=== PATIENT | male | born 1970 | race Caucasian/White ===

== ENCOUNTER 2024-05-17 16:22 | Emergency (ER) | payer OTHER ==
--- OUTSIDE RECORDS SUMMARY | 2024-05-17 16:25 | XMS REPORT | Continuity of Care Document ---
Author Name Unknown Address [address] [place] [address] [facility] Address 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 Name Role Phone GA SAMUEL JR Primary Care Physician UnavaKaity Dalal Attending Clinician Unavailable Scot West Attending Clinician Unavailable ROMIE COWART Attending Clinician Unavail able ROMIE COWART Attending Clinician Unavail able Romie Cowart MD Attending Clinician LEXUS MACIAS Attending Clinician Unava MYRA Ramos Attending Clinician Unavailable LAB90 Attending Clinician Unavailable Lexus Macias MD Attending Clinician [phone] Tony Lazaro MD Attending Clinician Therapy, [facility] Attending Clinician Unavailable Isaac Bernard MD Attending Clinician [phone] ISAAC BERNARD Attending Clinician Unavailable ROMIE COWART Admitting Clinician Unavail able Payers Payer Name Policy Type Policy Number Effective Date Expirati on Date Source CIGNA II [id number] 2018 00:00:00 CIGNA 2 [id number] 2021 00:00:00 CIGNA C1 [id number] 2018 00:00:00 [facility] Problems Condition Name Condition Details Condition Category Status Onset Date Resolution Date Last Treatment Date Treating Clinician Comments Source [id number] 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 [facility] [id number] Obstructiv e sleep apnea syndrome Problem Active [facility] [id number] Seasonal allergies Problem Active [facility] Obesity due to excess calories Other obesity due to excess calories Problem Active [facility] [id number] Anxiety Problem Active [facility] Gastroesop hageal reflux disease GERD (gastroeso phageal reflux disease) Problem Active [facility] Current smoker Current smoker Problem Active [facility] Tobacco user 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 complicati on Problem Active [facility] Diaphragma tic hernia Diaphragma tic hernia Problem Active [facility] Family history of stroke Family history of stroke Problem Active [facility] Mixed hyperlipid emia Mixed hyperlipid emia Problem Active [facility] No known active problems No known active problems Disease Fabienne Portillo Allergies, Adverse Reactions, Alerts Allergy Name Allergy Type Status Severity Reaction(s) Onset Date Inactive Date Treating Clinician Comments Source NO KNOWN ALLERGIE S Drug Class Active [facility] Social History Social Habit Start Date Stop Date Quantity Comments Source History of Tobacco Use Former Smoker [facility] Sex Assigned At [facility] Sexual orientation U [facility] Exposure to SARS-CoV-2 (event) Yes Fabienne mcmillan History of Social function 2023-12-18 00:00:00 2023-12-18 00:00:00 Fabienne Portillo - External Tobacco use and exposure 2023-06-29 00:00:00 2023-06-29 00:00:00 User of smokeless tobacco Fabienne [place] Argueta Sex 2021-01-05 15:27:30 2021-01-05 15:27:30 Male (finding) Fabienne Duvallhipolito Kei Kendall Smoking Status Start Date Stop Date Source Tobacco smoking consumption unknown [facility] Never smoked tobacco Fabienne Duvallhipolito Kei Argueta Former Smoker 2020-02-12 00:00:00 2020-02-12 00:00:00 [facility] Medications Ordered Medication Name Filled Medication Name Start Date Stop Date Current Medication? Ordering Clinician Indication Dosage Frequency Signature (SIG) Comments Components Source ketoconazol e 2 % - triamcinolo ne 0.1 % cream 2023-04 00:00: 00 Yes [id number] .25g Apply 0.25 g to affected area(s) in the morning and 0.25 g in the evening. [facility] methylPREDN ISolone 4 MG oral Tablet Therapy Pack 12-17 00:00: 00 Yes [id number] 1{tammy} Take 1 tammy by mouth See Admin Instructio ns Use as directed. Fabienne alexis Pseudoeph-B romphen-DM 30-2-10 MG/5ML oral Syrup 12-17 00:00: 00 Yes [id number] 10mL Q.25D Take 10 mL by mouth 4 times daily as needed. Fabienne alexis Azithromyci n 250 MG oral Tablet 12-17 00:00: 00 12-23 04:59 :00 No [id number] Take 2 tablets by mouth on day 1 then 1 tablet by mouth daily for 4 days thereafter .. Fabienne alexis Pantoprazol e Sodium 40 MG oral Tablet Delayed Response 11-04 00:00: 00 Yes 40mg QD Take 1 tablet (40 mg total) by mouth daily. Fabienne alexis Alprazolam 0.5 MG oral Tablet 06-28 13:25: 45 Yes 1{tbl} Take 1 tablet by mouth Fabienne alexis Citalopram Hydrobromid e 20 MG oral Tablet 06-28 13:25: 45 Yes 1{tbl} Take 1 tablet by mouth Fabienne alexis FLUTICASONE PROPIONATE, NASAL, 50 MCG/ACT nasal Suspension 06-28 13:25: 45 Yes every 24 hours Fabienne alexis Ondansetron HCl 4 MG oral Tablet 06-28 00:00: 00 Yes [id number] 4mg Q.[id number] 3D Take 1 tablet (4 mg total) by mouth every 8 hours as needed for nausea. Fabienne alexis Pantoprazol e Sodium 40 MG oral Tablet Delayed Response 06-27 00:00: 00 Yes 40mg Take 1 tablet (40 mg total) by mouth daily. Fabienne alexis Alprazolam 0.5 MG oral Tablet 08-26 10:00: 05 Yes 1{tbl} Take 1 tablet by mouth Fabienne Portillo Citalopram Hydrobromid e 20 MG oral Tablet 08-26 10:00: 05 Yes 1{tbl} Take 1 tablet by mouth Fabienne Portillo FLUTICASONE PROPIONATE, NASAL, 50 MCG/ACT nasal Suspension 08-26 10:00: 05 Yes every 24 hours Fabienne Portillo Ciprofloxac in HCl 500 MG oral Tablet 08-26 00:00: 00 09-03 04:59 :00 No [id number] 500mg Take 1 tablet (500 mg total) by mouth in the morning and 1 tablet (500 mg total) in the evening. Do all this for 7 days. Fabienne Portillo Ketorolac Tromethamin e (TORADOL) 60 mg/2 mL 04-28 20:15: 00 04-28 20:10 :00 No [id number] 60mg Fabienne Portillo Alprazolam 0.5 MG oral Tablet 04-28 13:32: 44 Yes 1{tbl} Take 1 tablet by mouth Fabienne Portillo Citalopram Hydrobromid e 20 MG oral Tablet 04-28 13:32: 44 Yes 1{tbl} Take 1 tablet by mouth Fabienne Portillo FLUTICASONE PROPIONATE, NASAL, 50 MCG/ACT nasal Suspension 04-28 13:32: 44 Yes every 24 hours Fabienne Portillo Cyclobenzap rine HCl 10 MG oral Tablet 04-28 00:00: 00 Yes [id number] 10mg Q.[id number] 3D Take 1 tablet (10 mg total) by mouth every 8 hours as needed for muscle spasms Fabienne Choudhury Externa vanesa Acetaminoph en-Codeine 300-30 MG oral Tablet 04-28 00:00: 00 Yes [id number] 1{tbl} Q.25D Take 1 tablet by mouth every 6 hours as needed for pain Fabienne alexis Ibuprofen 800 MG oral Tablet 04-28 00:00: 00 Yes [id number] 800mg Q.25D Take 1 tablet (800 mg total) by mouth every 6 hours as needed for pain Fabienne alexis Alprazolam 0.5 MG oral Tablet 2020-04 14:28: 54 Yes 1{tbl} Take 1 tablet by mouth Fabienne Portillo Citalopram Hydrobromid e 20 MG oral Tablet 2020-04 14:28: 54 Yes 1{tbl} Take 1 tablet by mouth Fabienne Portillo FLUTICASONE PROPIONATE, NASAL, 50 MCG/ACT nasal Suspension 2020-04 14:28: 54 Yes every 24 hours Fabienne Portillo Amoxicillin -Pot Clavulanate 875-125 MG oral Tablet 2020-04 00:00: 00 Yes [id number] 1{tbl} Take 1 tablet by mouth 2 times daily Fabienne alexis Citalopram Hydrobromid e 20 MG oral Tablet 01-06 08:07: 05 Yes 1{tbl} Take 1 tablet by mouth Fabienne Portillo FLUTICASONE PROPIONATE, NASAL, 50 MCG/ACT nasal Suspension 01-06 08:07: 05 Yes every 24 hours Fabienne Portillo Alprazolam 0.5 MG oral Tablet 01-06 08:07: 05 Yes 1{tbl} Take 1 tablet by mouth Fabienne Portillo methylPREDN ISolone 4 MG oral Tablet Therapy Pack 01-06 00:00: 00 Yes [id number] 1{tammy} Take 1 tammy by mouth See Admin Instructio ns Use as directed Fabienne alexis methylPREDN ISolone 4 MG oral Tablet Therapy Pack 01-06 00:00: 00 Yes [id number] 1{tammy} Take 1 tammy by mouth See Admin Instructio ns Use as directed Fabienne Portillo Azithromyci n 250 MG oral Tablet 01-06 00:00: 00 01-12 04:59 :00 No [id number] Take 2 tablets by mouth on day 1 then 1 tablet by mouth daily for 4 days thereafter . Fabienne Portillo iohexol (OMNIPAQUE 350 BULK-100 mL) injection 100 mL 01-03 10:30: 00 01-03 10:12 :00 No [id number] 100mL 100 mL, Intravenou s, ONCE, 1 dose, On 01/03/21 at 0530, Routine [facility] No known medications 01-03 03:41: 46 No [facility] Benzonatate 200 MG oral Capsule 01-03 00:00: 00 Yes 200mg Take 200 mg by mouth Fabienne alexis casirivimab -imdevimab 1200 mg in 60 mL NS MINI-BAG 01-01 18:30: 00 01-01 15:15 :00 No [id number] 1200mg 1,200 mg, IV Infusion, ONCE, Administer over 20 Minutes, On 01/01/21 at 1330, For 1 dose
Ad air quality instrument specialist as an IV infusion via pump or gravity through an intravenou s line containing a sterile, in-line or add-on 0.2-micron polyethers ulfone (PES) filter.&nb sp;Stable 36 hours refrigerat ed; 4 hours at room temperatur e. &nbs p;
[facility] Montelukast Sodium 10 MG Montelukast Sodium 10 MG 08-29 00:00: 00 No 1{table t} QD Montelukas t Sodium 10 MG Testosteron e Cypionate 200 MG/ML Testosteron e Cypionate 200 MG/ML 08-22 00:00: 00 No 1{ml} Testostero ne Cypionate 200 MG/ML Fish Oil 1000 MG Fish Oil 1000 MG No 1{capsu le} QD Fish Oil 1000 MG Fenofibrate 67 MG Fenofibrate 67 MG No 1{capsu le_with _a_meal } QD Fenofibrat e 67 MG Vital Signs Vital Name Observation Time Observation Value Comments S grecia Systolic blood pressure 2024-02-17 19:32:00 158 mm[Hg] [facility] Diastolic blood pressure 2024-02-17 19:32:00 104 mm[Hg] [facility] Heart rate 2024-02-17 19:32:00 77 /min [facility] Body temperature 2024-02-17 19:32:00 36.89 Comfort [facility] Respiratory rate 2024-02-17 19:32:00 16 /min [facility] Body height 2024-02-17 19:32:00 188 cm [facility] Body weight 2024-02-17 19:32:00 113.399 kg [facility] BMI 2024-02-17 19:32:00 32.10 kg/m2 [facility] Oxygen saturation in Arterial blood by Pulse oximetry 2024-02-17 19:32:00 100 /min [facility] Systolic blood pressure 2023-12-18 20:49:00 120 mm[Hg] Fabienne Ivano ld - External Diastolic blood pressure 2023-12-18 20:49:00 76 mm[Hg] Fabienne Ivano ld - External Heart rate 2023-12-18 20:49:00 83 /min Rsoette Ivanold - External Body temperature 2023-12-18 20:49:00 37.06 Comfort Fabienne Duvallybold - External Respiratory rate 2023-12-18 20:49:00 18 /min Fabienne Duvallybold - External Body height 2023-12-18 20:49:00 188 cm Juanita Ivanold - External Body weight 2023-12-18 20:49:00 116.574 kg Juanita ey Seybold - External BMI 2023-12-18 20:49:00 33.00 kg/m2 Juanita ey Seybold - External Systolic blood pressure 2023-06-29 18:24:00 142 mm[Hg] Fabienne Seybo ld - External Diastolic blood pressure 2023-06-29 18:24:00 89 mm[Hg] Fabienne Seybo ld - External Heart rate 2023-06-29 18:24:00 80 /min Kelse y Seybold - External Body temperature 2023-06-29 18:24:00 36.78 Comfort Fabienne Seybold - External Respiratory rate 2023-06-29 18:24:00 20 /min Fabienne Seybold - External Body weight 2023-06-29 18:24:00 113.399 kg Juanita ey Seybold - External BMI 2023-06-29 18:24:00 31.25 kg/m2 Juanita ey Seybold - External Oxygen saturation in Arterial blood by Pulse oximetry 2023-06-29 18:24:00 100 /min Fabienne Seybo ld - External Systolic blood pressure 2021-08-26 15:00:00 132 mm[Hg] Fabienne Seybo ld Diastolic blood pressure 2021-08-26 15:00:00 90 mm[Hg] Fabienne Seybo ld Heart rate 2021-08-26 15:00:00 103 /min Kelse y Seybold Body temperature 2021-08-26 15:00:00 36.61 Comfort Fabienne Seybold Respiratory rate 2021-08-26 15:00:00 14 /min Fabienne Seybold Body height 2021-08-26 15:00:00 190.5 cm Juanita ey Seybold Body weight 2021-08-26 15:00:00 108.41 kg Juanita ey Seybold BMI 2021-08-26 15:00:00 29.87 kg/m2 Juanita ey Seybold Systolic blood pressure 2021-04-28 19:33:00 137 mm[Hg] Fabienne Seybo ld Diastolic blood pressure 2021-04-28 19:33:00 86 mm[Hg] Fabienne Seybo ld Heart rate 2021-04-28 19:33:00 95 /min Kelse y Seybold Body temperature 2021-04-28 19:33:00 36.11 Comfort Fabienne Seybold Respiratory rate 2021-04-28 19:33:00 13 /min Fabienne Seybold Body height 2021-04-28 19:33:00 190.5 cm Juanita ey Seybold Body weight 2021-04-28 19:33:00 108.41 kg Juanita ey Seybold BMI 2021-04-28 19:33:00 29.87 kg/m2 Juanita ey Seybold Systolic blood pressure 2021-03-01 20:31:00 104 mm[Hg] Fabienne Seybo ld Diastolic blood pressure 2021-03-01 20:31:00 68 mm[Hg] Fabienne Seybo ld Heart rate 2021-03-01 20:31:00 80 /min Kelse y Seybold Body temperature 2021-03-01 20:31:00 36.72 Comfort Fabienne Seybold Respiratory rate 2021-03-01 20:31:00 14 /min Fabienne Seybold Body height 2021-03-01 20:31:00 190.5 cm Juanita ey Seybold Body weight 2021-03-01 20:31:00 106.595 kg Juanita ey Seybold BMI 2021-03-01 20:31:00 29.37 kg/m2 Juanita ey Seybold Oxygen saturation in Arterial blood by Pulse oximetry 2021-03-01 20:31:00 98 /min Fabienne Seybo ld Systolic blood pressure 2021-01-06 13:00:00 102 mm[Hg] Fabienne Seybo ld Diastolic blood pressure 2021-01-06 13:00:00 64 mm[Hg] Fabienne Seybo ld Heart rate 2021-01-06 13:00:00 93 /min Kelse y Seybold Body temperature 2021-01-06 13:00:00 36.94 Comfort Fabienne Seybold Respiratory rate 2021-01-06 13:00:00 14 /min Fabienne Seybold Body height 2021-01-06 13:00:00 190.5 cm Juanita ey Seybold Body weight 2021-01-06 13:00:00 103.42 kg Juanita ey Seybold BMI 2021-01-06 13:00:00 28.50 kg/m2 Juanita Portillo Systolic blood pressure 2021-01-03 11:00:00 116 mm[Hg] [facility] Diastolic blood pressure 2021-01-03 11:00:00 72 mm[Hg] [facility] Heart rate 2021-01-03 11:00:00 87 /[facility] Respiratory rate 2021-01-03 11:00:00 22 /min [facility] Oxygen saturation in Arterial blood by Pulse oximetry 2021-01-03 11:00:00 95 /min [facility] Body temperature 2021-01-03 08:40:00 36.78 Comfort [facility] Body height 2021-01-03 08:40:00 190.5 cm [facility] Body weight 2021-01-03 08:40:00 99.791 kg [facility] BMI 2021-01-03 08:40:00 27.50 kg/m2 [facility] Systolic blood pressure 2021-01-01 15:43:00 119 mm[Hg] [facility] Diastolic blood pressure 2021-01-01 15:43:00 78 mm[Hg] [facility] Heart rate 2021-01-01 15:43:00 97 /min [facility] Body temperature 2021-01-01 15:43:00 36.89 Comfort [facility] Respiratory rate 2021-01-01 15:43:00 18 /min [facility] Oxygen saturation in Arterial blood by Pulse oximetry 2021-01-01 15:43:00 97 /min [facility] Body height 2021-01-01 14:40:00 190.5 cm [facility] Body weight 2021-01-01 14:40:00 99.791 kg [facility] BMI 2021-01-01 14:40:00 27.50 kg/m2 [facility] height 2020-01-30 15:20:00 74 [in_i] [facility] weight 2020-01-30 15:20:00 245.0 [lb_av] [facility] temperature 2020-01-30 15:20:00 98.2 [degF] Com mon [facility] bmi 2020-01-30 15:20:00 31.45 kg/m2 [facility] oximetry 2020-01-30 15:20:00 97 % [facility] respiratory rate 2020-01-30 15:20:00 18 /min [facility] blood pressure systolic 2020-01-30 15:20:00 138 mm[Hg] [facility] blood pressure diastolic 2020-01-30 15:20:00 88 mm[Hg] [facility] height 2020-01-19 14:00:00 74 [in_i] [facility] weight 2020-01-19 14:00:00 243.8 [lb_av] Co mmon [facility] temperature 2020-01-19 14:00:00 98.8 [degF] Com [facility] bmi 2020-01-19 14:00:00 31.3 kg/m2 [facility] oximetry 2020-01-19 14:00:00 97 % [facility] respiratory rate 2020-01-19 14:00:00 19 /min [facility] blood pressure systolic 2020-01-19 14:00:00 135 mm[Hg] [facility] blood pressure diastolic 2020-01-19 14:00:00 88 mm[Hg] [facility] Procedures Procedure Date / Time Performed Performing Clinicia n Source URINALYSIS 2024-02-17 21:21:00 Romie Cowart [facility] TROPONIN I 2024-02-17 21:20:00 Romie Cowart [facility] COMP. METABOLIC PANEL ([id number]) 2024-02-17 21:20:00 Romie Cowart [facility] CBC WITH DIFF 2024-02-17 21:20:00 Romie Cowart [facility] N-TERMINAL PRO-BNP 2024-02-17 21:20:00 Romie Cowart [facility] MAGNESIUM 2024-02-17 21:20:00 Romie Cowart [facility] XR CHEST 1 VW 2024-02-17 20:28:54 Romie Cowart [facility] URINALYSIS NONAUTO W/O SCOPE 2021-08-26 15:11:[address] CHEST PULMONARY ANGIOGRAM 2021-01-03 10:17:59 Tony Lazaro [facility] XR CHEST 1 VW 2021-01-03 09:10:29 Tony Lazaro [facility] TROPONIN I 2021-01-03 08:55:00 Tony Lazaro [facility] COMP. METABOLIC PANEL ([id number]) 2021-01-03 08:55:00 Tony Lazaro [facility] CBC WITH DIFF 2021-01-03 08:55:00 Tony Lazaro [facility] N-TERMINAL PRO-BNP 2021-01-03 08:55:00 Tony Lazaro [facility] Encounters Start Date/Time End Date/Time Encounter Type Admission Type Attending [facility] Care Department Encounter ID Source 2021-05-04 12:09:00 Outpatient Kaity Correa [facility] [id number] [facility] 2021-05-04 12:03:25 Outpatient Kaity Correa [facility] [id number] [facility] 2021-05-04 12:03:02 Outpatient Kaity Correa [facility] [id number] [facility] 2021-05-04 12:02:22 Outpatient Kaity Correa [facility] [id number] [facility] 2021-05-04 11:59:55 Outpatient Kaity Correa [facility] [id number] [facility] 2021-05-04 11:58:53 Outpatient Kaity Correa [facility] [id number] [facility] 2021-05-04 11:54:25 Outpatient Kaity Correa [facility] [id number] [facility] 2021-05-04 11:54:12 Outpatient [facility] [id number] [facility] 2021-05-04 11:53:26 Outpatient Scot West [facility] [id number] [facility] 2021-02-08 01:28:[address] [facility] [id number] [facility] 2024-02-17 13:34:00 2024-02-17 17:49:00 Emergency X ROMIE COWART [facility] ERT [id number] [facility] 2024-02-17 13:34:00 2024-02-17 17:49:00 Emergency Romie Cowart [facility] [id number] [facility] 2024-02-08 00:00:00 2024-02-08 00:00:00 Outpatient LEXUS MACIAS [id number] [facility] 2023-12-18 15:30:00 2023-12-18 15:30:00 Outpatient MYRA SOTO [id number] [facility] 2023-11-05 00:00:00 2023-11-05 00:00:00 Outpatient LEXUS MACIAS [id number] [facility] 2023-09-07 00:00:00 2023-09-07 00:00:00 Outpatient LEXUS MACIAS [id number] [facility] 2023-06-29 14:15:00 2023-06-29 14:15:00 Outpatient LAB90 FABIENNE NEWBERRY [id number] Fabienne Portillo 2023-06-29 13:30:00 2023-06-29 13:30:00 Outpatient LEXUS MACIAS [id number] [facility] 2021-08-29 00:00:00 2021-08-29 00:00:00 Outpatient LEXUS MACIAS [id number] [facility] 2021-08-26 10:30:00 2021-08-26 10:30:00 Outpatient LAB90 FABIENNE NEWBERRY [id number] [facility] 2021-08-26 10:00:00 2021-08-26 10:15:00 Office Visit Lexus Macias [place] [id number] [facility] 2021-04-28 13:45:00 2021-04-28 14:00:00 Office Visit Lexus Macias [place] [id number] [facility] 2021-03-01 14:30:00 2021-03-01 15:00:00 Office Visit Lexus Macias [place] [id number] [facility] 2021-01-06 07:54:14 2021-01-06 08:24:14 Office Visit Lexus Macias [place] [id number] [facility] 2021-01-03 03:45:00 2021-01-03 06:38:00 Emergency Tony Lazaro [facility] [id number] [facility] 2021-01-01 11:33:07 2021-01-01 12:33:07 Nurse Visit Therapy, Clc Isaac Colvin [facility] Office Building 1..840.114 [id number] [facility] 2021-01-01 09:30:00 2021-01-01 09:30:[address] [facility] [id number] [facility] 2021-01-01 09:30:00 2021-01-01 09:30:[address] [facility] [id number] [facility] 2020-02-13 00:00:00 2020-02-13 00:00:00 OFFICE VISIT EST PT LEVEL 3 STLMLC STLMLC [id number] [facility] 2020-02-03 00:00:00 2020-02-03 00:00:00 (TEL) STLMLC STLMLC [id number] [facility] 2020-01-30 00:00:00 2020-01-30 00:00:00 (TEL) STLMLC STLMLC [id number] [facility] 2020-01-30 00:00:00 2020-01-30 00:00:00 OFFICE VISIT ESTAB PT LEVEL 4 STLMLC STLMLC [id number] [facility] 2020-01-19 00:00:00 2020-01-19 00:00:00 OFFICE VISIT EST PT LEVEL 3 STLMLC STLMLC [id number] [facility] Results Test Description Test Time Test Comments Results Result Co mments Source [id number] 21:57:05* Test Item Value Reference Range Interpretation Comme nts NT-proBNP (test code = 83033-9) <=125 Lab Interpretation (test cod e = 24382-3) [facility] [id number] 21:50:31EXAM: XR CHEST 1 02/17/2024 1:57 PM HISTORY: 54 years old Male with malaise TECHNIQUE: Portable AP view of the chest. COMPARISON: Chest radiograph 01/03/2021 FINDINGS: Lungs and pleura: The lungs are clear. No focal consolidation,pneumothorax, or pleural effusion is seen. Cardiomediastinal: The cardiomediastinal silhouette is normal accountingfor technique. Musculoskeletal: No acute osseous abnormality. [facility]. Metabolic Panel ([id number])2024-02-17 21:46:24* Test Item Value Reference Range Interpretation Comme nts NA (test code = 8573593294) 137 mmol/L 135-145 K (test code = 2457537785) 4.1 mmol/L 3.5-5.0 CL (test code = 2914000014) 103 mmol/L 98-108 CO2 TOTAL (test code = 4858212426) 25 mmol/L 23-31 AGAP (test code = 7394681598) 9 2-16 BUN (test code = 9082944621) 14 mg/dL 7-23 GLUCOSE (test code = 6456270651) 107 mg/dL 70-110 CREATININE (test code = 2160-0) 0.86 mg/dL 0.60-1.25 TOTAL BILI (test code = 1101672384) 0.5 mg/dL 0.1-1.1 CALCIUM (test code = 8692777707) 9.1 mg/dL 8.6-10.6 T PROTEIN (test code = 8053626779) 7.4 g/dL 6.3-8.2 ALBUMIN (test code = 2600778566) 4.8 g/dL 3.5-5.0 ALK PHOS (test code = 6726310569) 69 U/L 34-122 ALTv (test code = 1742-6) 48 U/L 5-50 AST(SGOT) (test code = 5451573365) 47 U/L 13-40 H eGFR (test code = 40808-3) 102.9 mL/min/1.73m2 CKD-EPI eGFR (2020). Assuming creatinine has been stable day-to-day for at least three months, the eGFR indicates Category G1 (>= 90 mL/min/1.73 m2) Lab Interpretation (test code = 27446-7) Abnormal [facility] [facility] 21:46:24* Test Item Value Reference Range Interpretation Comme nts MAGNESIUM (test code = 3111861096) 2.1 mg/dL 1.7-2.4 Lab Interpretation (test cod e = 12079-2) [facility] [id number] 21:33:44* Test Item Value Reference Range Interpretation Comme nts WBC (test code = 6690-2) 8.38 4.20-10.70 RBC (test code = 789-8) 4.50 4.26-5.52 HGB (test code = 718-7) 14.8 g/dL 12.2-16.4 HCT (test code = 4544-3) 43.1 % 38.4-49.3 MCV (test code = 787-2) 95.8 fL 81.7-95.6 H MCH (test code = 785-6) 32.9 pg 26.1-32.7 H MCHC (test code = 786-4) 34.3 g/dL 31.2-35.0 RDW-SD (test code = 91474-9) 41.9 fL 38.5-51.6 RDW-CV (test code = 788-0) 12.1 % 12.1-15.4 PLT (test code = 777-3) 246 150-328 MPV (test code = 00517-6) 9.6 fL 9.8-13.0 L NRBC/100 WBC (test code = 1259868912) 0.0 0.0-10.0 NRBC x10^3 (test code = 9924948237) See_Comment [Automated messa ge] The system which generated this result transmitted reference range: 10*3/?L. The reference range was not used to interpret this result as normal/abnormal. GRAN MAT (NEUT) % (test code = 770-8) 70.0 % IMM GRAN % (test code = 0494526647) 0.50 % LYMPH % (test code = 736-9) 18.9 % MONO % (test code = 5905-5) 10.1 % EOS % (test code = 713-8) 0.0 % BASO % (test code = 706-2) 0.5 % GRAN MAT x10^3(ANC) (test code = 2731448398) 5.87 10*3/uL 1.99-6.95 IMM GRAN x10^3 (test code = 2627665459) 0.04 10*3/uL 0.00-0.06 LYMPH x10^3 (test code = 731-0) 1.58 10*3/uL 1.09-3.23 MONO x10^3 (test code = 742-7) 0.85 10*3/uL 0.36-1.02 EOS x10^3 (test code = 711-2) 0.06-0.53 L BASO x10^3 (test code = 704-7) 0.04 10*3/uL 0.01-0.09 Lab Interpretation (test code = 69143-6) [facility]/O [id number] 15:12:00* Test Item Value Reference Range Interpretation Comme nts UD KETONES (test code = 475740) 5 mg/dL 5-160 UD GLUCOSE (test code = 256272) neg 100-2000 UD PROTEIN (test code = 575855) neg Trace - 2000 mg/dL UD LEUKOCYTES (test code = 395950) neg Trace - Large @ 2 min. UD NITRITE (test code = 261097) neg Neg. - Pos. @ 60 sec. UD UROBILINOGEN (test code = 513737) 0.2 mg/dL 0.2-8 UD PH (test code = 485661) See_Comment [Automated [employer]] The system which generated this result transmitted reference range: 5.0 - 8.5 @ 60 sec.. The reference range was not used to interpret this result as normal/abnormal. UD BLOOD (test code = 622089) trace Neg. - Large @ 60 sec. UD SPECIFIC GRAVITY (test code = 270717) See_Comment [Automated message] The system which generated this result transmitted reference range: 1.000 - 1.030 @ 45 sec.. The reference range was not used to interpret this result as normal/abnormal. UD BILIRUBIN (test code = 838062) neg Neg. - Large @ 45 sec. Lab Interpretation (test code = 78522-8) Abnormal Fabienne Farris [id number] 09:35:42* Test Item Value Reference Range Interpretation Comments TROPONIN I (test code = 9151082853) 0.002 ng/mL See_Comment [Automated message] The system which generated this result transmitted reference range: <=0.034. The reference range was not used to interpret this result as normal/abnormal. ROC (test code = ROC) Reference (Normal) Range (defined by the 99th percentile reference limit): <= 0.034 ng/mL Note: Cardiac troponin begins to rise 3-4 hours after the onset of ischemia. Repeat in 4-6 hours if the sample was drawn within 3-4 hours of the onset of the symptom and found normal. Diagnosis of myocardial injury is made with acute changes in cTn concentrations with at least one serial sample above the 99th percentile upper reference limit (URL), taken together with the patient's clinical presentation. Biotin has been reported to cause a negative bias, interpret results relative to patient's use of biotin. Lab Interpretation (test code = 25766-0) Normal [facility] [id number] 09:32:39* Test Item Value Reference Range Interpretation Comme nts NT-proBNP (test code = 4820193323) 55 pg/mL See_Comment [Automated message] The system which generated this result transmitted reference range: <=125. The reference range was not used to interpret this result as normal/abnormal. ROC (test code = ROC) Biotin has been reported to cause a negative bias, interpret results relative to patient's use of biotin. Lab Interpretation (test code = 26888-0) [facility] (89036)2021-01-03 09:18:24* Test Item Value Reference Range Interpretation Comme nts NA (test code = 9406741218) 135 mmol/L 135-145 K (test code = 3762360798) 3.7 mmol/L 3.5-5.0 CL (test code = 8130222524) 101 mmol/L 98-108 CO2 TOTAL (test code = 3856104211) 29 mmol/L 23-31 AGAP (test code = 4194830691) 2-16 BUN (test code = 7166023997) 10 mg/dL 7-23 GLUCOSE (test code = 3430264610) 116 mg/dL 70-110 H CREATININE (test code = 8673031080) 0.66 mg/dL 0.60-1.25 TOTAL BILI (test code = 0581822549) 0.5 mg/dL 0.1-1.1 CALCIUM (test code = 3765532730) 8.4 mg/dL 8.6-10.6 L T PROTEIN (test code = 9429242333) 6.8 g/dL 6.3-8.2 ALBUMIN (test code = 6092400649) 3.8 g/dL 3.5-5.0 ALK PHOS (test code = 3452421882) 72 U/L 34-122 ALTv (test code = 1742-6) 76 U/L 5-50 H AST(SGOT) (test code = 4475682419) 72 U/L 13-40 H eGFR (test code = 3742431005) mL/min/1.73m2 ROC (test code = ROC) Association of Glomerular Filtration Rate (GFR) and Staging of Kidney Disease* + --+ --+ ------+| GFR (mL/min/1.73 m2) ?| With Kidney Damage ?| ?Without Kidney Damage+ --------+ --------+ +| ?>90 ?| ?Stage one ?| ? Normal ?+ ---+ ---+ -------+| ?60-89 ?| ?Stage two ?| ? Decreased GFR ? + --+ --+ ------+| ?30-59 ?| ?Stage three ?| ? Stage three ? + --+ --+ ------+| ?15-29 ?| ?Stage four ? | ? Stage four ?+ ---+ ---+ -------+| ?<15 (or dialysis) ? ?| ?Stage five ? | ? Stage five ?+ ---+ ---+ -------+ *Each stage assumes the associated GFR level has been in effect for at least three months. ?Stages 1 to 5, with or without kidney disease, indicate chronic kidney disease. Notes: Determination of stages one and two (with eGFR >59mL/min/1.73 m2) requires estimation of kidney damage for at least three months as defined by structural or functional abnormalities of the kidney, manifested by either:Pathological abnormalities or Markers of kidney damage (including abnormalities in the composition of the blood or urine or abnormalities in imaging tests). Lab Interpretation (test code = 47175-1) Abnormal [facility] WITH [id number] 09:03:39* Test Item Value Reference Range Interpretation Comme nts WBC (test code = 6690-2) See_Comment [Automated [employer] ge] The system which generated this result transmitted reference range: 4.20 - 10.70 10*3/?L. The reference range was not used to interpret this result as normal/abnormal. RBC (test code = 789-8) See_Comment [Automated [employer] ge] The system which generated this result transmitted reference range: 4.26 - 5.52 10*6/?L. The reference range was not used to interpret this result as normal/abnormal. HGB (test code = 718-7) 14.6 g/dL 12.2-16.4 HCT (test code = 4544-3) 42.1 % 38.4-49.3 MCV (test code = 787-2) 94.4 fL 81.7-95.6 MCH (test code = 785-6) 32.7 pg 26.1-32.7 MCHC (test code = 786-4) 34.7 g/dL 31.2-35.0 RDW-SD (test code = 75321-3) 41.5 fL 38.5-51.6 RDW-CV (test code = 788-0) 11.9 % 12.1-15.4 L PLT (test code = 777-3) See_Comment [Automated [employer] ge] The system which generated this result transmitted reference range: 150 - 328 10*3/?L. The reference range was not used to interpret this result as normal/abnormal. MPV (test code = 11632-2) 9.7 fL 9.8-13.0 L NRBC/100 WBC (test code = 8480724791) See_Comment [Automated [employer] ssage] The system which generated this result transmitted reference range: 0.0 - 10.0 /100 WBCs. The reference range was not used to interpret this result as normal/abnormal. NRBC x10^3 (test code = 0565068212) <0.01 See_Comment [Automated messa ge] The system which generated this result transmitted reference range: 10*3/?L. The reference range was not used to interpret this result as normal/abnormal. GRAN MAT (NEUT) % (test code = 770-8) 75.6 % IMM GRAN % (test code = 3931157785) 0.30 % LYMPH % (test code = 736-9) 16.8 % MONO % (test code = 5905-5) 6.9 % EOS % (test code = 713-8) 0.2 % BASO % (test code = 706-2) 0.2 % GRAN MAT x10^3(ANC) (test code = 7538240663) 4.60 10*3/uL 1.99-6.95 IMM GRAN x10^3 (test code = 8581890615) <0.03 0.00-0.06 LYMPH x10^3 (test code = 731-0) 1.02 10*3/uL 1.09-3.23 L MONO x10^3 (test code = 742-7) 0.42 10*3/uL 0.36-1.02 EOS x10^3 (test code = 711-2) <0.03 0.06-0.53 L BASO x10^3 (test code = 704-7) <0.03 0.01-0.09 Lab Interpretation (test code = 65997-1) Abnormal [facility]"
[2024-05-17 17:14] LABS: Specific Gravity < 1.005 (1.005-1.030); Urine Bilirubin NEGATIVE (Negative); Urine Blood Negative (Negative); Urine Clarity Clear (Clear); Urine Color Colorless (Yellow); Urine Glucose NEGATIVE (Negative); Urine Ketones NEGATIVE (Negative); Urine Microscopic Reflex YN NO UMIC; Urine Nitrite NEGATIVE (Negative); Urine Protein NEGATIVE (Negative); Urine Urobilinogen Normal (Normal); Urine pH 5.5 (5.0-7.0)
[2024-05-17] MEDS ORDERED: NA CHLORIDE 0.9% 500 ML ONE (17:38)
[2024-05-17] MEDS ORDERED: CEFTRIAXONE 2000 MG/VIAL ONE (19:53)
[2024-05-17] MEDS ORDERED: NA CHLORIDE 0.9% 100 ML ONE (19:53)
[2024-05-17] MEDS ORDERED: NA CHLORIDE 0.9% 1,000 ML ONE (19:53)
[2024-05-17] MEDS ORDERED: METRONIDAZOLE 500mg IVPB 500 MG/100 ML BAG IV ONE (19:54)
[2024-05-17] MEDS ORDERED: CIPROFLOXACIN 400mg IV 400 MG/200 ML BAG IV ONE (19:54)
[2024-05-17 19:57] LABS: Absolute Lymphocytes (CBC) 1.9 K/uL (0.7-4.9); Absolute Monocytes 0.5 K/uL (0.1-1.3); Absolute Neutrophil 4.9 K/uL (1.8-8.0); Basophils % 0.4 % (0-1.3); Eosinophils % 0.2 % (0-4.4); Hematocrit 44.1 % (39.6-49.0); Hemoglobin 15.9 g/dL (13.6-17.9); Lymphocytes % 25.9 % (15.3-44.8); MCH 33.4 pg (27.0-35.0); MCV 92.8 fL (80-100); MPV 7.7 fL (7.6-11.3); Monocytes % 6.9 % (3.3-12.3); Neutrophils % 66.6 % (41.7-73.7); Platelets 256 thou/uL (152-406); RBC Red Blood Cell Count 4.76 M/uL (4.33-5.43); Red Cell Distribution Width 12.6 % (12.1-15.2)
[2024-05-17 20:43] LABS: Albumin 4.1 g/dL (3.4-5.0); Albumin/Globulin Ratio 1.1 (1.1-1.8); Bilirubin Total 0.6 mg/dL (0.2-1.0); Globulin 3.7 g/dL (2.3-3.5); Protein, Total 7.8 g/dL (6.4-8.2)
--- NOTE | 2024-05-17 21:20 | RAD REPORT ---
EXAMINATION: CT ABDOMEN AND PELVIS WITH CONTRAST CLINICAL INDICATION: Male, 54 years old.ABD PAIN TECHNIQUE: CT abdomen and pelvis was performed, after the administration of IV contrast, [facility]. Axial, sagittal and coronal reconstructions were obtained. One or more of the following dose reduction techniques were used: Automated exposure control, adjustment of the mA and/o r kV according to patient size, and/or iterative reconstruction. Unless otherwise specified, incidental findings do not require dedicated imaging follow-up. [id number]. COMPARISON: No prior exam. FINDINGS: LOWER CHEST: No acute process identified.No significant pericardial effusion. Mild circumferential th ickening of the distal esophagus which could reflect esophagitis. UPPER GI: No significant abnormality. LIVER: Hepatic steatosis. Benign appearing and/or stable lesions are identified. No suspicious mass. GALLBLADDER/BILE DUCTS: No biliary ductal dilatation.? PANCREAS: No mass, ductal dilation, or gumaro-pancreatic fluid. SPLEEN: Unremarkable. ADRENALS: No adrenal masses. KIDNEYS AND URETERS: No hydronephrosis.Low density and/or too small to characterize renal lesions whi ch are statistically benign. ABDOMINAL AORTA AND OTHER VESSELS: Mild atherosclerotic changes. PERITONEUM: No abnormal free fluid. No free air. LYMPH NODES: No pathologic lymphadenopathy. ABDOMINAL WALL: Small fat-containing inguinal hernias. SMALL BOWEL/COLON: Small bowel has normal course and caliber. No colonic wall thickening or pericolon ic inflammatory changes.Normal appendix. URINARY BLADDER: Mild nonspecific circumferential bladder wall thickening. REPRODUCTIVE ORGANS: No pathologic process. MUSCULOSKELETAL: No acute or suspicious osseous abnormality. ADDITIONAL FINDINGS: None. IMPRESSION: No acute or significant abnormalities seen in the abdomen or pelvis.
--- NOTE | 2024-05-17 21:23 | EDPHYS ---
Physician Documentation [facility] Name: Cirilo Mallory Age: 54 yrs Sex: Male : 1970 Arrival Date: 05/17/2024 Time: 16:22 Bed 19 Private MD: ED Physician Gallito Bush HPI: 05/17 17:26 This 54 yrs old Male presents to ER via Ambulatory with complaints of ec2 Abdominal Pain, Abdominal Swelling. 17:26 Patient arrives today for evaluation of worsening abdominal distention. Reports he has ec2 not had medical bowel movement in the past 10 days. Patient reports abdominal distention and bloating. Previous abdominal surgery included hiatal hernia. No urinary complaints. No cough and cold symptoms. Historical: - Allergies: 16:39 No Known Allergies; hb - Home Meds: 16:39 Protonix Oral [Active]; Dicyclomine Oral [Active]; Pepcid Oral [Active]; hb - PMHx: 16:39 GERD; hb - PSHx: 16:39 Hiatal Hernia; Left Knee; Left Hip; hb - Immunization history:: Adult Immunizations up to date. - Infectious Disease History:: Denies. - Social history:: Smoking status: Reported history of juuling and/or vaping. ROS: 17:26 Constitutional: as per hpi ec2 Exam: 17:26 Constitutional: GEN: NAD Head: atraumatic Eyes: EOMI Ears: External ears are ec2 normal. CV: regular rate LUNGS: no respiratory distress ABD: Slight amount of abdominal distention, general abdominal TTP, not guarding or rigid. SKIN: no evidence of rashes MSK: no evidence of trauma Vital Signs: 16:38 BP 151 / 101; Pulse 68; Resp 16; Temp 98.5(O); Pulse Ox 98% on R/A; Weight 108.86 kg; hb Height 6 ft. 3 in. ; Pain 10/10; 18:02 BP 154 / 88; Pulse 80; Resp 20; Temp 98.2; Pulse Ox 100% on R/A; kj2 19:18 BP 161 / 94; Pulse 59; Resp 18; Pulse Ox 100% on R/A; kj2 21:28 BP 148 / 84; Pulse 60; Resp 18; Temp 98.2; Pulse Ox 100% on R/A; kj2 16:38 Body Mass Index 30.00 (108.86 kg, 190.5 cm) hb 16:38 Pain Scale: Adult hb MDM: 16:25 Medical Screening Exam initiated ec2 17:26 Data reviewed: vital signs, nurses notes. ED course: Patient arrives today for ec2 evaluation of abdominal distention. Examination is revealing for slightly moderate distention along with general TTP. Will obtain lab work and CT imaging. Differential includes constipation, obstruction, ileus. 18:43 ED course: Will sign pt out to oncoming doc w/ pending CT imaging. ec2 18:44 Transition of care: After a detail discussion of the patient's case, care is ec2 transferred to Beau Mann MD. 05/17 16:37 Order name: CBC with Diff; Complete Time: 20:11 ec2 05/17 16:37 Order name: CMP; Complete Time: 20:58 ec2 05/17 16:37 Order name: Lipase; Complete Time: 20:58 ec2 05/17 16:37 Order name: Urinalysis w/ reflexes; Complete Time: 18:46 ec2 05/17 17:25 Order name: CT Abd/Pelvis - IV Contrast Only; Complete Time: 21:21 ec2 05/17 16:37 Order name: IV Saline Lock; Complete Time: 17:43 ec2 05/17 16:37 Order name: Labs collected and sent; Complete Time: 17:43 ec2 05/17 19:30 Order name: Misc. Order: labs to be recollected; Complete Time: 20:07 sp Administered Medications: 17:39 Drug: NS 0.9% IV 500 ml 500 ml IV at 1 bolus once; to be given as a bolus over 30 kj2 minutes Volume: 500 ml; Route: IV; Rate: 1 bolus; Site: left antecubital; 20:07 Follow up: IV Status: Completed infusion; IV Intake: 500ml kj2 19:45 Drug: Rocephin - Rocephin (cefTRIAXone) IVPB 2 grams IVPB once over 30 mins; (mix in kj2 100 mL NS) Route: IVPB; Infused Over: 30 mins; Site: left antecubital; 20:14 Follow up: IV Status: Completed infusion; IV Intake: 100ml kj2 19:45 Drug: NS 0.9% IV 1000 ml IV at 1000 ml once; to be given as a bolus over 60 minutes kj2 Route: IV; Rate: 1000 ml; Site: left antecubital; 21:29 Follow up: IV Status: Completed infusion; IV Intake: 1000ml kj2 20:14 Drug: metroNIDAZOLE IVPB 500 mg 100 ml IVPB at 200 ml/hr once over 30 mins Volume: 100 kj2 ml; Route: IVPB; Rate: 200 ml/hr; Infused Over: 30 mins; Site: left antecubital; 20:47 Follow up: IV Status: Completed infusion; IV Intake: 100ml kj2 20:48 Drug: Ciprofloxacin IVPB 400 mg 200 ml IVPB once over 60 mins Volume: 200 ml; Route: kj2 IVPB; Infused Over: 60 mins; Site: left antecubital; Disposition Summary: 05/17/24 21:22 Discharge Ordered Notes: Location: Home sarkis Problem: new sarkis Symptoms: have improved sarkis Condition: Stable sarkis Diagnosis - Abdominal tenderness sarkis - Diverticulosis of large intestine without perforation or abscess without bleeding sarkis Followup: sarkis - With: Private Physician - When: 2 - 3 days - Reason: Recheck today's complaints, Continuance of care, Re-evaluation by your physician Followup: sarkis - With: Dhaval Quezada MD - When: 2 - 3 days - Reason: Recheck today's complaints, Re-evaluation by your physician Discharge Instructions: - Discharge Summary Sheet sarkis - Abdominal Pain, Adult sarkis - Diverticulitis sarkis - Diverticulosis sarkis - Diverticulitis, Eehi-sy-Hfuj sarkis - Abdominal Pain, Adult, Bumy-up-Xxan [facility] Forms: - Medication Reconciliation Form [facility] - Antibiotic Education [facility] - Prescription Opioid Use [facility] - Patient Portal Instructions [facility] - Leadership Thank You Letter [facility] Prescriptions: - Colace 100 mg Oral capsule - take 1 tablet ORAL route every 12 hours; 20 tablet; Refills: 0, Product [facility] Selection Permitted - Flagyl 500 mg Oral tablet - take 1 tablet ORAL route every 8 hours for 7 days; 21 tablet; Refills: 0, [facility] Product Selection Permitted - Zofran 4 mg Oral Tablet - take 1 tablet ORAL route every 12 hours As needed; 20 tablet; Refills: 0, [facility] Product Selection Permitted - Cipro 500 mg Oral tablet - take 1 tablet ORAL route every 12 hours for 7 days; 14 tablet; Refills: 0, [facility] Product Selection Permitted Signatures: Dispatcher [employer] EDMS EleazarGallito MD MD cha Pinkerton, Shawna sp Baxter, Heather, RN RN hb Damián Gonzalez MD MD ec2 Génesis Gallardo RN RN kj2
--- NOTE | 2024-05-17 21:23 | ER ---
Nurse's Notes [facility] Name: Cirilo Mallory Age: 54 yrs Sex: Male : 1970 Arrival Date: 05/17/2024 Time: 16:22 Bed 19 Private MD: Diagnosis: Abdominal tenderness;Diverticulosis of large intestine without perforation or abscess without bleeding Presentation: 05/17 16:38 Chief complaint: Abdominal pain and distention 9 days, worse over last few days. hb Coronavirus screen: At this time, the client does not indicate any symptoms associated with coronavirus-19. Ebola Screen: No symptoms or risks identified at this time. Initial Sepsis Screen: Does the patient meet any 2 criteria? No. Patient's initial sepsis screen is negative. Does the patient have a suspected source of infection? No. Patient's initial sepsis screen is negative. Risk Assessment: Do you want to hurt yourself or someone else? Patient reports no desire to harm self or others. Onset of symptoms was May 09, 2024. 16:38 Method Of Arrival: Ambulatory hb 16:38 Acuity: SYLVIA 3 hb Triage Assessment: 17:00 General: Behavior is calm, cooperative. kj2 Historical: - Allergies: 16:39 No Known Allergies; hb - Home Meds: 16:39 Protonix Oral [Active]; Dicyclomine Oral [Active]; Pepcid Oral [Active]; hb - PMHx: 16:39 GERD; hb - PSHx: 16:39 Hiatal Hernia; Left Knee; Left Hip; hb - Immunization history:: Adult Immunizations up to date. - Infectious Disease History:: Denies. - Social history:: Smoking status: Reported history of juuling and/or vaping. Screenin:00 [facility] ED Fall Risk Assessment (Adult) History of falling in the last 3 months, kj2 including since admission No falls in past 3 months (0 pts) Confusion or Disorientation No (0 pts) Intoxicated or Sedated No (0 pts) Impaired Gait No (0 pts) Mobility Assist Device Used No (0 pt) Altered Elimination No (0 pt) Score/Fall Risk Level 0 - 2 = Low Risk Maintained a safe environment, Hourly rounding (assess needs \T\ fall precautionary measures) done. Abuse screen: Denies threats or abuse. Denies injuries from another. Nutritional screening: No deficits noted. Tuberculosis screening: No symptoms or risk factors identified. Assessment: 16:45 General: Appears in no apparent distress. Pain: Complains of pain in ABDOMEN Pain kj2 currently is 4 out of 10 on a pain scale. Neuro: Level of Consciousness is awake, alert, obeys commands, Oriented to person, place, time, situation. Cardiovascular: Patient's skin is warm and dry. Respiratory: Airway is patent Respiratory effort is even, unlabored. GI: Bowel sounds present X 4 quads. Abd is non tender. : No signs and/or symptoms were reported regarding the genitourinary system. 17:45 Reassessment: Patient appears in no apparent distress at this time. Patient and/or kj2 family updated on plan of care and expected duration. Pain level reassessed. Patient is alert, oriented x 3, equal unlabored respirations, skin warm/dry/pink. 18:45 Reassessment: Patient appears in no apparent distress at this time. Patient and/or kj2 family updated on plan of care and expected duration. Pain level reassessed. Patient is alert, oriented x 3, equal unlabored respirations, skin warm/dry/pink. 19:45 Reassessment: Patient appears in no apparent distress at this time. Patient and/or kj2 family updated on plan of care and expected duration. Pain level reassessed. Patient is alert, oriented x 3, equal unlabored respirations, skin warm/dry/pink. 20:45 Reassessment: Patient appears in no apparent distress at this time. Patient and/or kj2 family updated on plan of care and expected duration. Pain level reassessed. Patient is alert, oriented x 3, equal unlabored respirations, skin warm/dry/pink. 21:27 Reassessment: Patient appears in no apparent distress at this time. Patient and/or kj2 family updated on plan of care and expected duration. Pain level reassessed. Patient is alert, oriented x 3, equal unlabored respirations, skin warm/dry/pink. 21:49 Reassessment: Patient appears in no apparent distress at this time. Patient and/or kj2 family updated on plan of care and expected duration. Pain level reassessed. Patient is alert, oriented x 3, equal unlabored respirations, skin warm/dry/pink. Vital Signs: 16:38 BP 151 / 101; Pulse 68; Resp 16; Temp 98.5(O); Pulse Ox 98% on R/A; Weight 108.86 kg; hb Height 6 ft. 3 in. ; Pain 10/10; 18:02 BP 154 / 88; Pulse 80; Resp 20; Temp 98.2; Pulse Ox 100% on R/A; kj2 19:18 BP 161 / 94; Pulse 59; Resp 18; Pulse Ox 100% on R/A; kj2 21:28 BP 148 / 84; Pulse 60; Resp 18; Temp 98.2; Pulse Ox 100% on R/A; kj2 16:38 Body Mass Index 30.00 (108.86 kg, 190.5 cm) hb 16:38 Pain Scale: Adult hb ED Course: 16:24 Patient arrived in ED. mr 16:37 Damián Gonzalez MD is Attending Physician. ec2 16:39 Triage completed. hb 16:40 Arm band placed on. hb 16:45 Génesis Gallardo, ARMEN is Primary Nurse. kj2 17:00 Bed in low position. Call light in reach. Adult w/ patient. Provided Education on: CALL kj2 LIGHT. 17:00 No provider procedures requiring assistance completed. Inserted saline lock: 20 gauge kj2 in left antecubital area, using aseptic technique. Blood collected. Flushed with 10 mL NS. 18:08 IV discontinued, intact, bleeding controlled, No redness/swelling at site. Pressure kj2 dressing applied. 19:01 Radiology exam delayed due to lab results not completed at this time. (BUN/Creatinine). [facility] 19:23 Attending Physician role handed off by Damián Gonzalez MD [facility] 19:23 Gallito Bush MD is Attending Physician. [facility] 21:01 CT Abd/Pelvis - IV Contrast Only In Process Unspecified. EDRI 21:21 Dhaval Quezada MD is Referral Physician. sarkis Administered Medications: 17:39 Drug: NS 0.9% IV 500 ml 500 ml IV at 1 bolus once; to be given as a bolus over 30 kj2 minutes Volume: 500 ml; Route: IV; Rate: 1 bolus; Site: left antecubital; 20:07 Follow up: IV Status: Completed infusion; IV Intake: 500ml kj2 19:45 Drug: Rocephin - Rocephin (cefTRIAXone) IVPB 2 grams IVPB once over 30 mins; (mix in kj2 100 mL NS) Route: IVPB; Infused Over: 30 mins; Site: left antecubital; 20:14 Follow up: IV Status: Completed infusion; IV Intake: 100ml kj2 19:45 Drug: NS 0.9% IV 1000 ml IV at 1000 ml once; to be given as a bolus over 60 minutes kj2 Route: IV; Rate: 1000 ml; Site: left antecubital; 21:29 Follow up: IV Status: Completed infusion; IV Intake: 1000ml kj2 20:14 Drug: metroNIDAZOLE IVPB 500 mg 100 ml IVPB at 200 ml/hr once over 30 mins Volume: 100 kj2 ml; Route: IVPB; Rate: 200 ml/hr; Infused Over: 30 mins; Site: left antecubital; 20:47 Follow up: IV Status: Completed infusion; IV Intake: 100ml kj2 20:48 Drug: Ciprofloxacin IVPB 400 mg 200 ml IVPB once over 60 mins Volume: 200 ml; Route: kj2 IVPB; Infused Over: 60 mins; Site: left antecubital; Medication: 17:00 VIS not applicable for this client. kj2 Intake: 20:07 IV: 500ml; Total: 500ml. kj2 20:14 IV: 100ml; Total: 600ml. kj2 20:47 IV: 100ml; Total: 700ml. kj2 21:29 IV: 1000ml; Total: 1700ml. kj2 Outcome: 21:22 Discharge ordered by . sarkis 21:43 Discharged to home ambulatory, with family, kj2 21:43 Condition: stable 21:43 Discharge instructions given to patient, family, Instructed on discharge instructions, follow up and referral plans. medication usage, 21:50 Patient left the ED. kj2 Signatures: Dispatcher [employer] EDRI Gallito Bush MD MD cha Rivera, Mary, Reg Reg mr Rossy Aguilar, RN RN aDmián Isaac MD MD ec2 McGilbery, Sarah [facility] Génesis Gallardo, ARMEN RN kj2 Corrections: (The following items were deleted from the chart) 19:01 18:07 Condition: stable kj2 ll1 19:01 18:07 Discharged to home ambulatory, with family, kj2 ll1 19:01 18:07 Discharge instructions given to patient, family, Instructed on discharge ll1 instructions, follow up and referral plans. Demonstrated understanding of instructions, follow-up care, kj2
[2024-05-17 22:11] VITALS: TEMP 98.2; O2SAT 100
[2024-05-17 22:14] VITALS: BP 148/84
== END 2024-05-17 21:50 | disposition home or self-care (01) ==
LOC: ER 16:22
DX: K57.30 Diverticulosis of large intestine without perforation or abscess without bleeding (principal); K21.9 Gastro-esophageal reflux disease without esophagitis
CPT/HCPCS: 96365; 96367; 96361; 85025; 36415; 81003; 83690; 80053; 74177; 96375; 99284; Q9967; J0696; J0744; J7040; J7030

== ENCOUNTER 2024-06-26 10:11 | Emergency (ER) | payer OTHER ==
--- OUTSIDE RECORDS SUMMARY | 2024-06-26 10:16 | XMS REPORT | Continuity of Care Document ---
Author Name Unknown Address [address] [facility] [address] [place] [address] [facility] [place] Address [address] [facility] [address] [place] [address] Care Team Providers Care Civil Preparedness Coordinator Name Role Phone Lexus Macias MD Primary Care Physician Kaity Correa Attending Clinician Unavailable Scot West Attending Clinician Unavailable LEXUS MACIAS Attending Clinician Unava ilable ROMIE COWART Attending Clinician Unavail able ROMIE COWART Attending Clinician Unavail able Romie Cowart MD Attending Clinician [phone] MYRA SOTO Attending Clinician Unavailable LAB90 Attending Clinician Unavailable Lexus Macias MD Attending Clinician [phone] Tony Lazaro MD Attending Clinician [phone] Therapy, [facility] Cov[facility] Infusion Attending Clinician Unavailable Isaac Bernard MD Attending Clinician [phone] ISAAC BERNARD Attending Clinician Unavailable ROMIE COWART Admitting Clinician Unavail able Payers Payer Name Policy Type Policy Number Effective Date Expirati on Date Source CIGNA 2 [id number] 2021 00:00:00 CIGNA II [id number] 2018 00:00:00 CIGNA C1 [id number] 2018 00:00:00 [facility] Problems Condition Name Condition Details Condition Category Status Onset Date Resolution Date Last Treatment Date Treating Clinician Comments Source Mixed hyperlipid emia Mixed hyperlipid emia Problem Active [facility] No known active problems No known active problems Disease Fabienne Portillo [id number] 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 [facility] [id number] Obstructiv e sleep apnea syndrome Problem Active [facility] [id number] Seasonal allergies Problem Active [facility] Obesity due to excess calories Other obesity due to excess calories Problem Active [facility] [id number] Anxiety Problem Active [facility] Gastroesop hageal reflux disease GERD (gastroeso phageal reflux disease) Problem Active [facility] Current smoker Current smoker Problem Active [facility] Tobacco user 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 complicati on Problem Active [facility] Diaphragma tic hernia Diaphragma tic hernia Problem Active [facility] Family history of stroke Family history of stroke Problem Active [facility] Allergies, Adverse Reactions, Alerts Allergy Name Allergy Type Status Severity Reaction(s) Onset Date Inactive Date Treating Clinician Comments Source NO KNOWN ALLERGIE S Drug Class Active [facility] Social History Social Habit Start Date Stop Date Quantity Comments Source History of Tobacco Use Former Smoker [facility] Sex Assigned At [facility] Exposure to SARS-CoV-2 (event) Yes Fabienne mcmillan Sexual orientation U [facility] History of Social function 2023-12-18 00:00:00 2023-12-18 00:00:00 Fabienne Portillo - External Tobacco use and exposure 2023-06-29 00:00:00 2023-06-29 00:00:00 User of smokeless tobacco Fabienne [place] Argueta Sex 2021-01-05 15:27:30 2021-01-05 15:27:30 Male (finding) Fabienne Argueta Smoking Status Start Date Stop Date Source Tobacco smoking consumption unknown [facility] Never smoked tobacco Fabienne [place] Argueta Former Smoker 2020-02-12 00:00:00 2020-02-12 00:00:00 [facility] Medications Ordered Medication Name Filled Medication Name Start Date Stop Date Current Medication? Ordering Clinician Indication Dosage Frequency Signature (SIG) Comments Components Source ketoconazol e 2 % - triamcinolo ne 0.1 % cream 2023-04 00:00: 00 Yes [id number] .25g Apply 0.25 g to affected area(s) in the morning and 0.25 g in the evening. [facility] methylPREDN ISolone 4 MG oral Tablet Therapy Pack 12-17 00:00: 00 Yes [id number] 1{tammy} Take 1 tammy by mouth See Admin Instructio ns Use as directed. Fabienne alexis Pseudoeph-B romphen-DM 30-2-10 MG/5ML oral Syrup 12-17 00:00: 00 Yes [id number] 10mL Q.25D Take 10 mL by mouth 4 times daily as needed. Fabienne alexis Azithromyci n 250 MG oral Tablet 12-17 00:00: 00 12-23 04:59 :00 No [id number] Take 2 tablets by mouth on day [...] MG oral Tablet 06-28 00:00: 00 Yes [id number] 4mg Q.34966916 [id number] 3D Take 1 tablet (4 mg total) [...] 08-26 00:00: 00 09-03 04:59 :00 No [id number] 500mg Take 1 tablet (500 mg total) by mouth in the morning and 1 tablet (500 mg total) in the evening. Do all this for 7 days. Fabienne Portillo Ketorolac Tromethamin e (TORADOL) 60 mg/2 mL 04-28 20:15: 00 04-28 20:10 :00 No [id number] 60mg Fabienne Portillo Alprazolam 0.5 MG oral [...] MG oral Tablet 04-28 00:00: 00 Yes [id number] 10mg Q.05336960 [id number] 3D Take 1 tablet (10 mg total) by mouth every 8 hours as needed for muscle spasms Fabienne Choudhury Externa vanesa Acetaminoph en-Codeine 300-30 MG oral Tablet 04-28 00:00: 00 Yes [id number] 1{tbl} Q.25D Take 1 tablet by mouth every 6 hours as needed for pain Fabienne alexis Ibuprofen 800 MG oral Tablet 04-28 00:00: 00 Yes [id number] 800mg Q.25D Take 1 tablet (800 mg total) by mouth every 6 hours as needed for pain Fabienne alexis Alprazolam 0.5 MG oral Tablet 2020-04 14:28: 54 Yes 1{tbl} Take 1 tablet by mouth Fbaienne Portillo Citalopram Hydrobromid e 20 MG oral Tablet 2020-04 14:28: 54 Yes 1{tbl} Take 1 tablet by mouth Fabienne Portillo FLUTICASONE PROPIONATE, NASAL, 50 MCG/ACT nasal Suspension 2020-04 14:28: 54 Yes every 24 hours Fabienne Portillo Amoxicillin -Pot Clavulanate 875-125 MG oral Tablet 2020-04 00:00: 00 Yes [id number] 1{tbl} Take 1 tablet by mouth 2 [...] Tablet Therapy Pack 01-06 00:00: 00 Yes [id number] 1{tammy} Take 1 tammy by mouth See Admin Instructio ns Use as directed Fabienne alexis methylPREDN ISolone 4 MG oral Tablet Therapy Pack 01-06 00:00: 00 Yes [id number] 1{tammy} Take 1 tammy by mouth See Admin Instructio ns Use as directed Fabienne Portillo Azithromyci n 250 MG oral Tablet 01-06 00:00: 00 01-12 04:59 :00 No [id number] Take 2 tablets by mouth on day 1 then 1 tablet by mouth daily for 4 days thereafter . Fabienne Portillo iohexol (OMNIPAQUE 350 BULK-100 mL) injection 100 mL 01-03 10:30: 00 01-03 10:12 :00 No [id number] 100mL 100 mL, Intravenou s, ONCE, 1 dose, On 01/03/21 at 0530, Routine [facility] No known medications 01-03 03:41: 46 No [facility] Benzonatate 200 MG oral Capsule 01-03 00:00: 00 Yes 200mg Take 200 mg by mouth Fabienne alexis casirivimab -imdevimab 1200 mg in 60 mL NS MINI-BAG 01-01 18:30: 00 01-01 15:15 :00 No [id number] 1200mg 1,200 mg, IV Infusion, ONCE, Administer over 20 Minutes, On 01/01/21 at 1330, For 1 dose
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 &nbs p;
[facility] Montelukast Sodium 10 MG Montelukast Sodium 10 [...] Name Observation Time Observation Value Comments S ource Systolic blood pressure 2024-02-17 19:32:00 158 mm[Hg] [facility] Diastolic blood pressure 2024-02-17 19:32:00 104 mm[Hg] [facility] Heart rate 2024-02-17 19:32:00 77 /min [facility] Body temperature 2024-02-17 19:32:00 36.89 Comfort [facility] Respiratory rate 2024-02-17 19:32:00 16 /min [facility] Body height 2024-02-17 19:32:00 188 cm [facility] Body weight 2024-02-17 19:32:00 113.399 kg [facility] BMI 2024-02-17 19:32:00 32.10 kg/m2 [facility] Oxygen saturation in Arterial blood by Pulse oximetry 2024-02-17 19:32:00 100 /min [facility] Systolic blood pressure 2023-12-18 20:49:00 120 mm[Hg] Fabienne Tang ld - External Diastolic blood pressure 2023-12-18 20:49:00 76 mm[Hg] Fabienne Ivano ld - External Heart rate 2023-12-18 20:49:00 83 /min Rosette Portillo - External Body temperature 2023-12-18 20:49:00 37.06 Comfort Fabienne Duvallybold - External Respiratory rate 2023-12-18 20:49:00 18 /min Fabienne Duvallybold - External Body height 2023-12-18 20:49:00 188 cm Juanitajennifer Ivanold - External Body weight 2023-12-18 20:49:00 [...] ld Heart rate 2021-08-26 15:00:00 103 /min Jlse y Seybold Body temperature 2021-08-26 15:00:00 36.61 [...] ey Seybold BMI 2021-01-06 13:00:00 28.50 kg/m2 Juanitajennifer Portillo Systolic blood pressure 2021-01-03 11:00:00 116 mm[Hg] [facility] Diastolic blood pressure 2021-01-03 11:00:00 72 mm[Hg] [facility] Heart rate 2021-01-03 11:00:00 87 /min [facility] Respiratory rate 2021-01-03 11:00:00 22 /min [facility] Oxygen saturation in Arterial blood by Pulse oximetry 2021-01-03 11:00:00 95 /min [facility] Body temperature 2021-01-03 08:40:00 36.78 Comfort [facility] Body height 2021-01-03 08:40:00 190.5 cm [facility] Body weight 2021-01-03 08:40:00 99.791 kg [facility] BMI 2021-01-03 08:40:00 27.50 kg/m2 [facility] Systolic blood pressure 2021-01-01 15:43:00 119 mm[Hg] [facility] Diastolic blood pressure 2021-01-01 15:43:00 78 mm[Hg] [facility] Heart rate 2021-01-01 15:43:00 97 /min [facility] Body temperature 2021-01-01 15:43:00 36.89 Comfort [facility] Respiratory rate 2021-01-01 15:43:00 18 /min [facility] Oxygen saturation in Arterial blood by Pulse oximetry 2021-01-01 15:43:00 97 /min [facility] Body height 2021-01-01 14:40:00 190.5 cm [facility] Body weight 2021-01-01 14:40:00 99.791 kg [facility] BMI 2021-01-01 14:40:00 27.50 kg/m2 [facility] height 2020-01-30 15:20:00 74 [in_i] [facility] weight 2020-01-30 15:20:00 245.0 [lb_av] Co mmon [facility] temperature 2020-01-30 15:20:00 98.2 [degF] Com mon [facility] bmi 2020-01-30 15:20:00 31.45 kg/m2 Comm on [facility] oximetry 2020-01-30 15:20:00 97 % Commo n [facility] respiratory rate 2020-01-30 15:20:00 18 /min Common [facility] blood pressure systolic 2020-01-30 15:20:00 138 mm[Hg] [facility] blood pressure diastolic 2020-01-30 15:20:00 88 mm[Hg] [facility] height 2020-01-19 14:00:00 74 [in_i] Commo n [facility] weight 2020-01-19 14:00:00 243.8 [lb_av] Co on [facility] temperature 2020-01-19 14:00:00 98.8 [degF] Com [facility] bmi 2020-01-19 14:00:00 31.3 kg/m2 Commo n [facility] oximetry 2020-01-19 14:00:00 97 % Commo n [facility] respiratory rate 2020-01-19 14:00:00 19 /min [facility] blood pressure systolic 2020-01-19 14:00:00 135 mm[Hg] [facility] blood pressure diastolic 2020-01-19 14:00:00 88 mm[Hg] [facility] Procedures Procedure Date / Time Performed Performing Clinicia n Source URINALYSIS 2024-02-17 21:21:00 Romie Cowart [facility] TROPONIN I 2024-02-17 21:20:00 Romie Cowart [facility] COMP. METABOLIC PANEL ([id number]) 2024-02-17 21:20:00 Romie Cowart [facility] CBC WITH DIFF 2024-02-17 21:20:00 Romie Cowart [facility] N-TERMINAL PRO-BNP 2024-02-17 21:20:00 Romie Cowart [facility] MAGNESIUM 2024-02-17 21:20:00 Romie Cowart [facility] XR CHEST 1 VW 2024-02-17 20:28:54 Romie Cowart [facility] URINALYSIS NONAUTO W/O SCOPE 2021-08-26 15:11:00 Lexus Macias [facility] CHEST PULMONARY ANGIOGRAM 2021-01-03 10:17:59 Tony Lazaro [facility] XR CHEST 1 VW 2021-01-03 09:10:29 Tony Lazaro [facility] TROPONIN I 2021-01-03 08:55:00 Tony Lazaro [facility] COMP. METABOLIC PANEL ([id number]) 2021-01-03 08:55:00 Tony Lazaro [facility] CBC WITH DIFF 2021-01-03 08:55:00 Tony Lazaro [facility] N-TERMINAL PRO-BNP 2021-01-03 08:55:00 Tony Lazaro [facility] Encounters Start Date/Time End Date/Time Encounter Type Admission Type Attending [facility] Care Facility Care Department Encounter ID Source 2021-05-04 12:09:00 Outpatient Kaity Correa [facility] [id number] [facility] 2021-05-04 12:03:25 Outpatient Kaity Correa [facility] [id number] [facility] 2021-05-04 12:03:02 Outpatient Kaity Correa [facility] [id number] [facility] 2021-05-04 12:02:22 Outpatient Kaity Correa [facility] [id number] [facility] 2021-05-04 11:59:55 Outpatient Madeline, Kaity STLMLC STLMLC [id number] [facility] 2021-05-04 11:58:53 Outpatient MadelineKaity henry STLMLC STLC [id number] [facility] 2021-05-04 11:54:25 Outpatient Kaity Correa STLMLC STLMLC [id number] [facility] 2021-05-04 11:54:12 Outpatient Kaity Correa STJULISSALC STLC [id number] [facility] 2021-05-04 11:53:26 Outpatient Scot West ST[facility] [id number] [facility] 2021-02-08 01:28:54 Emergency [facility] [id number] [facility] 2024-06-25 00:00:00 2024-06-25 00:00:00 Outpatient LEXUS MACIAS [id number] [facility] 2024-02-17 13:34:00 2024-02-17 17:49:00 Emergency X ROMIE COWART [facility] ERT [id number] [facility] 2024-02-17 13:34:00 2024-02-17 17:49:00 Emergency Romie Cowart [facility] [id number] [facility] 2024-02-08 00:00:00 2024-02-08 00:00:00 Outpatient LEXUS MACIAS [id number] Fabienne [facility] 2023-12-18 15:30:00 2023-12-18 15:30:00 Outpatient MYRA SOTO [id number] [facility] 2023-11-05 00:00:00 2023-11-05 00:00:00 Outpatient LEXUS MACIAS [id number] Fabienne [facility] 2023-09-07 00:00:00 2023-09-07 00:00:00 Outpatient LEXUS MACIAS [id number] [facility] 2023-06-29 14:15:00 2023-06-29 14:15:00 Outpatient LAB90 FABIENNE NEWBERRY [id number] Fabienne [facility] 2023-06-29 13:30:00 2023-06-29 13:30:00 Outpatient LEXUS MACIAS [id number] [facility] 2021-08-29 00:00:00 2021-08-29 00:00:00 Outpatient LEXUS MACIAS [id number] [facility] 2021-08-26 10:30:00 2021-08-26 10:30:00 Outpatient LAB90 FABIENNE NEWBERRY [id number] Fabienne [facility] 2021-08-26 10:00:00 2021-08-26 10:15:00 Office Visit Lexus Macias [place] [id number] [id number] Fab[facility] 2021-04-28 13:45:00 2021-04-28 14:00:00 Office Visit Lexus Macias [place] [id number] [id number] [id number] Fabienne [facility] 2021-03-01 14:30:00 2021-03-01 15:00:00 Office Visit Lexus Macias [place] [id number] [id number] [id number] [id number] Fabienne [facility] 2021-01-06 07:54:14 2021-01-06 08:24:14 Office Visit Lexus Macias [place] [id number] [id number] [id number] [id number] Fabienne Portillo 2021-01-03 03:45:00 2021-01-03 06:38:00 Emergency Tony Lazaro [facility] [id number] [id number] [id number] [id number] [facility] 2021-01-01 11:33:07 2021-01-01 12:33:07 Nurse Visit Therapy, Clc Isaac Colvin Formerly named [facility] Office Building [id number] [id number] [id number] [facility] 2021-01-01 09:30:00 2021-01-01 09:30:00 Outpatient ISAAC HOWELL [facility] [id number] [facility] 2021-01-01 09:30:00 2021-01-01 09:30:00 Outpatient ISAAC HOWELL [facility] [id number] [facility] 2020-02-13 00:00:00 2020-02-13 00:00:00 OFFICE VISIT EST PT LEVEL 3 STLMLC STLMLC [id number] [facility] 2020-02-03 00:00:00 2020-02-03 00:00:00 (TEL) STLMLC STLMLC [id number] [facility] 2020-01-30 00:00:00 2020-01-30 00:00:00 (TEL) STLMLC STLMLC [id number] [facility] 2020-01-30 00:00:00 2020-01-30 00:00:00 OFFICE VISIT ESTAB PT LEVEL 4 STLMLC STLMLC [id number] [facility] 2020-01-19 00:00:00 2020-01-19 00:00:00 OFFICE VISIT EST PT LEVEL 3 STLMLC STLMLC [id number] [facility] Results Test Description Test Time Test Comments Results Result Co mments Source [facility] A[facility]-[id number] 21:57:05* Test Item Value Reference Range Interpretation Comme nts NT-proBNP (test code = 08030-9) <=125 Lab Interpretation (test cod e = 86549-3) [facility] [id number] 21:50:31EXAM: XR CHEST 1 02/17/2024 1:57 PM HISTORY: 54 years old Male with malaise TECHNIQUE: Portable AP view of the chest. COMPARISON: Chest radiograph 01/03/2021 FINDINGS: Lungs and pleura: The lungs are clear. No focal consolidation,pneumothorax, or pleural effusion is seen. Cardiomediastinal: The cardiomediastinal silhouette is normal accountingfor technique. Musculoskeletal: No acute osseous abnormality. [facility]. Metabolic Panel ([id number])2024-02-17 21:46:24* Test Item Value Reference Range Interpretation Comme nts NA (test code = 1125210810) 137 mmol/L 135-145 K (test code = 1132195572) 4.1 mmol/L 3.5-5.0 CL (test code = 0986213038) 103 mmol/L 98-108 CO2 TOTAL (test code = 2674315210) 25 mmol/L 23-31 AGAP (test code = 4705720836) 9 2-16 BUN (test code = 7246612167) 14 mg/dL 7-23 GLUCOSE (test code = 0274357130) 107 mg/dL 70-110 CREATININE (test code = 2160-0) 0.86 mg/dL 0.60-1.25 TOTAL BILI (test code = 4654577413) 0.5 mg/dL 0.1-1.1 CALCIUM (test code = 4385339841) 9.1 mg/dL 8.6-10.6 T PROTEIN (test code = 1634592007) 7.4 g/dL 6.3-8.2 ALBUMIN (test code = 8226136728) 4.8 g/dL 3.5-5.0 ALK PHOS (test code = 7306917416) 69 U/L 34-122 ALTv (test code = 1742-6) 48 U/L 5-50 AST(SGOT) (test code = 2880633384) 47 U/L 13-40 H eGFR (test code = 61395-4) 102.9 mL/min/1.73m2 CKD-EPI eGFR (2020). Assuming creatinine has been stable day-to-day for at least three months, the eGFR indicates Category G1 (>= 90 mL/min/1.73 m2) Lab Interpretation (test code = 18265-6) Abnormal [facility] 21:46:24* Test Item Value Reference Range Interpretation Comme nts MAGNESIUM (test code = 0397900785) 2.1 mg/dL 1.7-2.4 Lab Interpretation (test cod e = 95193-3) Normal [facility] with [id number] 21:33:44* Test Item Value Reference Range Interpretation [...] 34.3 g/dL 31.2-35.0 RDW-SD (test code = 10846-7) 41.9 fL 38.5-51.6 RDW-CV (test code = 788-0) 12.1 % 12.1-15.4 PLT (test code = 777-3) 246 150-328 MPV (test code = 72446-8) 9.6 fL 9.8-13.0 L NRBC/100 WBC (test code = 8763689738) 0.0 0.0-10.0 NRBC x10^3 (test code = 0193252948) See_Comment [Automated messa ge] The system which generated this result transmitted reference range: 10*3/?L. The reference range was not used to interpret this result as normal/abnormal. GRAN MAT (NEUT) % (test code = 770-8) 70.0 % IMM GRAN % (test code = 0883111122) 0.50 % LYMPH % (test code = 736-9) 18.9 % MONO % (test code = 5905-5) 10.1 % EOS % (test code = 713-8) 0.0 % BASO % (test code = 706-2) 0.5 % GRAN MAT x10^3(ANC) (test code = 6617125557) 5.87 10*3/uL 1.99-6.95 IMM GRAN x10^3 (test code = 8344546723) 0.04 10*3/uL 0.00-0.06 LYMPH x10^3 (test code = 731-0) 1.58 10*3/uL 1.09-3.23 MONO x10^3 (test code = 742-7) 0.85 10*3/uL 0.36-1.02 EOS x10^3 (test code = 711-2) 0.06-0.53 L BASO x10^3 (test code = 704-7) 0.04 10*3/uL 0.01-0.09 Lab Interpretation (test code = 33281-4) [facility]normal [facility] NONAUTO W/O [id number] 15:12:00* Test Item Value Reference Range Interpretation Comme nts UD KETONES (test code = 194335) 5 mg/dL 5-160 UD GLUCOSE (test code = 194331) neg 100-2000 UD PROTEIN (test code = 020422) neg Trace - 2000 mg/dL UD LEUKOCYTES (test code = 846083) neg Trace - Large @ 2 min. UD NITRITE (test code = 069922) neg Neg. - Pos. @ 60 sec. UD UROBILINOGEN (test code = 092715) 0.2 mg/dL 0.2-8 UD PH (test code = 910367) See_Comment [Automated messa [employer]] The system which generated this result transmitted reference range: 5.0 - 8.5 @ 60 sec.. The reference range was not used to interpret this result as normal/abnormal. UD BLOOD (test code = 072039) trace Neg. - Large @ 60 sec. UD SPECIFIC GRAVITY (test code = 151408) See_Comment [Automated message] The system which generated this result transmitted reference range: 1.000 - 1.030 @ 45 sec.. The reference range was not used to interpret this result as normal/abnormal. UD BILIRUBIN (test code = 099829) neg Neg. - Large @ 45 sec. Lab Interpretation (test code = 83582-9) Abnormal Fabienne Farris [id number] 09:35:42* Test Item Value Reference Range Interpretation Comments TROPONIN I (test code = 3435886219) 0.002 ng/mL See_Comment [Automated message] The system [...] of biotin. Lab Interpretation (test code = 93994-9) Normal [facility] [id number] 09:32:39* Test Item Value Reference Range Interpretation Comme nts NT-proBNP (test code = 6962141055) 55 pg/mL See_Comment [Automated message] The system which generated this result transmitted reference range: <=125. The reference range was not used to interpret this result as normal/abnormal. ROC (test code = ROC) Biotin has been reported to cause a negative bias, interpret results relative to patient's use of biotin. Lab Interpretation (test code = 55622-1) [facility] ([id number])2021-01-03 09:18:24* Test Item Value Reference Range Interpretation Comme nts NA (test code = 4634192842) 135 mmol/L 135-145 K (test code = 8338803275) 3.7 mmol/L 3.5-5.0 CL (test code = 3645679698) 101 mmol/L 98-108 CO2 TOTAL (test code = 1937395454) 29 mmol/L 23-31 AGAP (test code = 8132713962) 2-16 BUN (test code = 5792469499) 10 mg/dL 7-23 GLUCOSE (test code = 7028058571) 116 mg/dL 70-110 H CREATININE (test code = 7505213104) 0.66 mg/dL 0.60-1.25 TOTAL BILI (test code = 5667159762) 0.5 mg/dL 0.1-1.1 CALCIUM (test code = 5565465476) 8.4 mg/dL 8.6-10.6 L T PROTEIN (test code = 1752689125) 6.8 g/dL 6.3-8.2 ALBUMIN (test code = 0831225763) 3.8 g/dL 3.5-5.0 ALK PHOS (test code = 6532969841) 72 U/L 34-122 ALTv (test code = 1742-6) 76 U/L 5-50 H AST(SGOT) (test code = 9681876162) 72 U/L 13-40 H eGFR (test code = 3107913508) mL/min/1.73m2 ROC (test code = ROC) Association [...] imaging tests). Lab Interpretation (test code = 11751-1) Abnormal [facility] WITH [id number] 09:03:39* Test Item Value Reference Range Interpretation Comme nts WBC (test code = 6690-2) See_Comment [Automated [employer]] The system which generated this result transmitted reference range: 4.20 - 10.70 10*3/?L. The reference range was not used to interpret this result as normal/abnormal. RBC (test code = 789-8) See_Comment [Automated [employer]] The system which generated this result transmitted [...] 34.7 g/dL 31.2-35.0 RDW-SD (test code = 77676-8) 41.5 fL 38.5-51.6 RDW-CV (test code = 788-0) 11.9 % 12.1-15.4 L PLT (test code = 777-3) See_Comment [Automated [employer]] The system which generated this result transmitted reference range: 150 - 328 10*3/?L. The reference range was not used to interpret this result as normal/abnormal. MPV (test code = 45880-0) 9.7 fL 9.8-13.0 L NRBC/100 WBC (test code = 2726842056) See_Comment [Automated [employer]] The system which generated this result transmitted reference range: 0.0 - 10.0 /100 WBCs. The reference range was not used to interpret this result as normal/abnormal. NRBC x10^3 (test code = 1409698535) <0.01 See_Comment [Automated messa ge] The system which generated this result transmitted reference range: 10*3/?L. The reference range was not used to interpret this result as normal/abnormal. GRAN MAT (NEUT) % (test code = 770-8) 75.6 % IMM GRAN % (test code = 2187776263) 0.30 % LYMPH % (test code = 736-9) 16.8 % MONO % (test code = 5905-5) 6.9 % EOS % (test code = 713-8) 0.2 % BASO % (test code = 706-2) 0.2 % GRAN MAT x10^3(ANC) (test code = 4847491190) 4.60 10*3/uL 1.99-6.95 IMM GRAN x10^3 (test code = 7774823026) <0.03 0.00-0.06 LYMPH x10^3 (test code = 731-0) 1.02 10*3/uL 1.09-3.23 L MONO x10^3 (test code = 742-7) 0.42 10*3/uL 0.36-1.02 EOS x10^3 (test code = 711-2) <0.03 0.06-0.53 L BASO x10^3 (test code = 704-7) <0.03 0.01-0.09 Lab Interpretation (test code = 97935-0) Abnormal [facility] Notes Date/Time Note Provider Source 2024-02-17 13:31:47 Patient states: "It started at the beginning of the week. I say lightheadedness but something is not right. Also I have ringworm on my ear and I need some meds because I can't get rid of it" Pmhx: GERD. EMENTATION ADVISOR Lucy Hamm RN [facility] 2024-02-17 13:13:00 [facility] Emergency Department Note Patient Name: Cirilo Mallory Date of : 1970 54 year old male Treatment Room: [facility] Primary Care Physician: PATIENT DOES NOT HAVE A PCP Patient Escorted by: Self [9] Mode of Arrival: Personal means [1] EMS Treatment Prior to ED Arrival: Travel and Exposure Screening: Symptoms Does patient have any of these symptoms?: (not recorded) Exposure Screening Has patient had contact with someone with a communicable disease in the last month?: (not recorded) Diseases exposed to:: (not recorded) Is Patient ?: (not recorded) Exposure Date: (not recorded) Chief Complaint: Chief Complaint Patient presents with LIGHTHEADEDNESS History of Present Illness: Very pleasant gentleman presents for a week of feeling "lightheaded" which he says is neither presyncope or vertigo, and which he has a hard time quantifying. History provided by: Patient Past Medical History/Immunizations: No past medical history on file. Allergies: No Known Allergies Past Social History: Substance & Sexual Activity No substance use or sexual activity history on file. Past Surgical History: No past surgical history on file. Review of Systems: Review of Systems Constitutional: Negative for activity change, appetite change, chills, diaphoresis and fatigue. HENT: Negative for congestion, ear discharge, ear pain, facial swelling, mouth sores, sore throat, trouble swallowing and voice change. Eyes: Negative for photophobia, discharge, redness, itching and visual disturbance. Respiratory: Negative for apnea, cough, choking, chest tightness, shortness of breath, wheezing and stridor. Breasts: Negative for discharge and mass. Cardiovascular: Negative for chest pain, palpitations and leg swelling. Gastrointestinal: Negative for abdominal distention, constipation, diarrhea, nausea and vomiting. Genitourinary: Negative for bladder incontinence, dysuria, frequency, hematuria, flank pain and difficulty urinating. Musculoskeletal: Negative for arthralgias, back pain, gait problem, joint swelling, myalgias, neck pain and neck stiffness. Skin: Negative for color change, pallor, rash and wound. Neurological: Positive for dizziness. Negative for syncope, facial asymmetry, speech difficulty, weakness, light-headedness, numbness and headaches. Psychiatric/Behavioral: Negative for agitation, behavioral problems, confusion and self-injury. Hematological: Negative for adenopathy, cold intolerance and heat intolerance. Does not bruise/bleed easily. Endocrine: Negative for cold intolerance, heat intolerance, polydipsia and polyphagia. Physical Exam: ED Triage Vitals [02/17/24 1332] Weight 113.4 kg (250 lb) Actual or estimated Estimated by patient/family report Height 1.88 m (6' 2") BP (!) 158/104 Pulse 77 Resp 16 Temp 36.9 ?C (98.4 ?F) Temp source Oral SpO2 100 % Measured on Room air Physical Exam Constitutional: General: He is not in acute distress. Appearance: He is well-developed. He is not ill-appearing, toxic-appearing or diaphoretic. HENT: Head: Normocephalic and atraumatic. Right Ear: Tympanic membrane and external ear normal. Left Ear: Tympanic membrane and external ear normal. Mouth/Throat: Pharynx: No oropharyngeal exudate. Eyes: General: No scleral icterus. Right eye: No discharge. Left eye: No discharge. Extraocular Movements: Extraocular movements intact. Conjunctiva/sclera: Conjunctivae normal. Pupils: Pupils are equal, round, and reactive to light. Neck: Thyroid: No thyromegaly. Vascular: No carotid bruit. Trachea: No tracheal deviation. Cardiovascular: Rate and Rhythm: Normal rate and regular rhythm. Heart sounds: Normal heart sounds. Pulmonary: Effort: Pulmonary effort is normal. No respiratory distress. Breath sounds: Normal breath sounds. No stridor. No wheezing. Abdominal: General: There is no distension. Palpations: Abdomen is soft. Tenderness: There is no abdominal tenderness. Musculoskeletal: General: No tenderness or deformity. Normal range of motion. Cervical back: Normal range of motion and neck supple. No rigidity or tenderness. Lymphadenopathy: Cervical: No cervical adenopathy. Skin: General: Skin is warm and dry. Coloration: Skin is not pale. Findings: Rash (focal area of dermatitis anterior to left ear; itchy per patient) present. No erythema. Neurological: General: No focal deficit present. Mental Status: He is alert and oriented to person, place, and time. Cranial Nerves: No cranial nerve deficit. Sensory: No sensory deficit. Motor: No weakness or abnormal muscle tone. Coordination: Coordination normal. Psychiatric: Behavior: Behavior normal. Thought Content: Thought content normal. Judgment: Judgment normal. Radiology: CT HEAD WO CONTRAST Preliminary Result EXAM: CT HEAD WO CONTRAST HISTORY: Dizziness TECHNIQUE: Axial CT of the head was performed and reconstructed at 5 mm intervals. Coronal and sagittal reformatted images were generated. COMPARISON: None FINDINGS: The ventricles and cerebral sulci are normal in caliber and configuration. No midline shift or pathological extra-axial fluid collection is present. The basal cisterns are unremarkable. No acute intracranial hemorrhage or significant mass effect is visualized. No parenchymal attenuation abnormality is seen. The fermin-white matter differentiation is preserved. The mastoid air cells and paranasal air sinuses are clear. The calvarium and central skull base are unremarkable. IMPRESSION No acute intracranial abnormality. Preliminary Report Dictated by Resident: Dax Aaron XR CHEST 1 VW Final Result EXAM: XR CHEST 1 VW 02/17/2024 1:57 PM HISTORY: 54 years old Male with malaise TECHNIQUE: Portable AP view of the chest. COMPARISON: Chest radiograph 01/03/2021 FINDINGS: Lungs and pleura: The lungs are clear. No focal consolidation, pneumothorax, or pleural effusion is seen. Cardiomediastinal: The cardiomediastinal silhouette is normal accounting for technique. Musculoskeletal: No acute osseous abnormality. IMPRESSION No acute cardiopulmonary abnormality. Preliminary Report Dictated by Resident: Nusrat Ambrose MD., have reviewed this study and agree with the above report. Lab Results: Lab Results CBC WITH DIFF - Abnormal Result Value Ref Range WBC 8.38 4.20 - 10.70 10*3/?L RBC 4.50 4.26 - 5.52 10*6/?L HGB 14.8 12.2 - 16.4 g/dL HCT 43.1 38.4 - 49.3 % MCV 95.8 (*) 81.7 - 95.6 fL MCH 32.9 (*) 26.1 - 32.7 pg MCHC 34.3 31.2 - 35.0 g/dL RDW-SD 41.9 38.5 - 51.6 fL RDW-CV 12.1 12.1 - 15.4 % PLT 246 150 - 328 10*3/?L MPV 9.6 (*) 9.8 - 13.0 fL NRBC/100 WBC 0.0 0.0 - 10.0 /100 WBCs NRBC x10 3 <0.01 10*3/?L GRAN MAT (NEUT) % 70.0 % IMM GRAN % 0.50 % LYMPH % 18.9 % MONO % 10.1 % EOS % 0.0 % BASO % 0.5 % GRAN MAT x10 3 (ANC) 5.87 1.99 - 6.95 10*3/uL IMM GRAN x10 3 0.04 0.00 - 0.06 10*3/uL LYMPH x10 3 1.58 1.09 - 3.23 10*3/uL MONO x10 3 0.85 0.36 - 1.02 10*3/uL EOS x10 3 <0.03 (*) 0.06 - 0.53 10*3/uL BASO x10 3 0.04 0.01 - 0.09 10*3/uL COMP. METABOLIC PANEL (87544) - Abnormal NA 137 135 - 145 mmol/L K 4.1 3.5 - 5.0 mmol/L CL 103 98 - 108 mmol/L CO2 TOTAL 25 23 - 31 mmol/L AGAP 9 2 - 16 BUN 14 7 - 23 mg/dL GLUCOSE 107 70 - 110 mg/dL CREATININE 0.86 0.60 - 1.25 mg/dL TOTAL BILI 0.5 0.1 - 1.1 mg/dL CALCIUM 9.1 8.6 - 10.6 mg/dL T PROTEIN 7.4 6.3 - 8.2 g/dL ALBUMIN 4.8 3.5 - 5.0 g/dL ALK PHOS 69 34 - 122 U/L ALTv 48 5 - 50 U/L AST(SGOT) 47 (*) 13 - 40 U/L eGFR 102.9 mL/min/1.73m2 URINALYSIS - Abnormal APPEARANCE Clear Clear COLOR Yellow Yellow PH 8.0 4.8 - 8.0 SP GRAVITY 1.014 1.003 - 1.030 GLU U QUAL Normal Normal BLOOD Negative Negative KETONES Negative Negative PROTEIN Negative Negative UROBILIN Normal Normal BILIRUBIN Negative Negative NITRITE Negative Negative LEUK ADRIANA Negative Negative RBC/HPF 2 0 - 3 HPF WBC/HPF <1 0 - 5 HPF BACTERIA Few (*) Negative MUCOUS Slight (*) Negative LPF SQ EPITH <1 HPF TROPONIN I - Normal TROPONIN I 0.003 <=0.034 ng/mL N-TERMINAL PRO-BNP - Normal NT-proBNP <20 <=125 pg/mL MAGNESIUM - Normal MAGNESIUM 2.1 1.7 - 2.4 mg/dL EKG: If EKG completed, see Procedure Note. Orders and Treatments: Orders Placed This Encounter Procedures XR CHEST [address] HEAD WO CONTRAST Cbc with Diff Comp. Metabolic Panel (74978) Troponin I N-Terminal Pro-Bnp Magnesium Urinalysis Orders Placed This Encounter Medications ketoconazole 2 % - triamcinolone 0.1 % cream First Provider Eval: ED Events Date/Time Event User Comments 02/17/24 1325 Medical Screening Begins ROMIE COWATR MD -- 02/17/24 1325 First Provider Evaluation ROMIE COWART MD -- ED COURSE Diagnosis/Impression as of 02/17/24 174 Dizziness Dermatitis Procedures: Procedures MDM: Medical Decision Making DDx incl vertigo, presyncope, dysrhythmia, anemia, dehydration, infection, et al D/w pt results, rec plan of care and f/u. Pt reports symptoms have now resolved. Pt neg CT w/ low suspicion/risk CVA and over a week of symptoms, incl historic episodes of same. Pt approp for outpt f/u. Amount and/or Complexity of Data Reviewed Labs: ordered. Radiology: ordered. Flowsheet Documentation: Disposition/Condition: ED Disposition ED Disposition Discharge Condition Stable Comment -- Discharge Medications: Patient's Medications START taking these medications KETOCONAZOLE 2 % - TRIAMCINOLONE 0.1 % CREAM Apply 0.25 g to affected area(s) in the morning and 0.25 g in the evening. CONTINUE taking these medications which have NOT CHANGED BENZONATATE 200 MG CAPSULE Take 1 capsule by mouth 3 (three) times daily as needed for Cough. START taking Modified Medications as Prescribed No medications on file STOP taking these medications No medications on file Follow-up: Electronically signed by: Romie Cowart MD 02/17/241740 [facility] 2023-12-18 15:51:48 Chief Complaint Patient presents with Sinus Problem Clear sinus drainage, sinus pressure, cough, sore throat Heena Hurst, MA II Heena Watters MA, II [facility]
[2024-06-26 11:01] LABS: Absolute Monocytes 0.5 K/uL (0.1-1.3); Absolute Neutrophil 3.2 K/uL (1.8-8.0); Basophils % 0.2 % (0-1.3); Eosinophils % 0.3 % (0-4.4); Hematocrit 45.5 % (39.6-49.0); Hemoglobin 16.3 g/dL (13.6-17.9); Lymphocytes % 20.6 % (15.3-44.8); MCH 33.4 pg (27.0-35.0); MCHC 35.9 g/dL (32.0-36.0); MPV 7.9 fL (7.6-11.3); Monocytes % 10.4 % (3.3-12.3); Neutrophils % 68.5 % (41.7-73.7); Nucleated Red Blood Cells % 0.2 % (0-0); Platelets 222 thou/uL (152-406); RBC Red Blood Cell Count 4.89 M/uL (4.33-5.43); Red Cell Distribution Width 13.2 % (12.1-15.2)
[2024-06-26 11:06] LABS: Specific Gravity 1.022 (1.005-1.030); Sqamous Epithelial None Seen /HPF (None Seen); Urine Bacteria None Seen /HPF (<20); Urine Bilirubin NEGATIVE (Negative); Urine Blood Trace (Negative); Urine Clarity Turbid (Clear); Urine Color Yellow (Yellow); Urine Culture Reflex Order NOT NEEDED; Urine Glucose NEGATIVE (Negative); Urine Ketones TRACE (Negative); Urine Micro Reflex YN NO BILL MICROSCOPIC; Urine Mucus 4+ /HPF (None Seen); Urine Nitrite NEGATIVE (Negative); Urine Protein TRACE (Negative); Urine RBC <5 /HPF (None Seen); Urine Urobilinogen Normal (Normal); Urine WBC <5 /HPF (<5)
[2024-06-26 11:14] LABS: Albumin 3.8 g/dL (3.4-5.0); Albumin/Globulin Ratio 1.1 (1.1-1.8); Anion Gap 11.5 mEq/L (5.0-15.0); Bilirubin Total 0.4 mg/dL (0.2-1.0); Globulin 3.6 g/dL (2.3-3.5); Potassium 3.5 mEq/L (3.5-5.1); Protein, Total 7.4 g/dL (6.4-8.2)
[2024-06-26] MEDS ORDERED: ONDANSETRON 4 MG/2 ML VIAL ONE (11:16)
[2024-06-26] MEDS ORDERED: KETOROLAC 30 MG/ML INJ ONE (11:16)
--- NOTE | 2024-06-26 12:13 | RAD REPORT ---
EXAMINATION: ULTRASOUND DUPLEX OF SCROTUM AND TESTICLES CLINICAL INDICATION: Male, 54 years, L teste pain/tenderness TECHNIQUE: Duplex scan of the scrotal contents was performed including real-time color and spectral D oppler ultrasonography with arterial inflow and venous outflow. COMPARISON: No prior exam. FINDINGS: RIGHT TESTICLE AND EPIDIDYMIS: The right testicle is normal in size, measuring 2.4 x 2.4 x 2.9 cm. Normal, homogeneous echotexture with no focal lesion seen. The right epididymis is normal. Color Doppler flow in the right testicle is normal. Normal arterial and venous spectral Doppler waveforms are identified. No hydrocele. No varicocele. LEFT TESTICLE AND EPIDIDYMIS: The left testicle is normal in size, measuring 4.1 x 2.4 x 2.4 cm. Normal, homogeneous echotexture with no focal lesion seen. The left epididymis is normal. Color Doppler flow in the left testicle is normal. Normal arterial and venous spectral Doppler waveforms are identified. No hydrocele. Moderate left varicocele. INGUINAL CANAL: No hernia. ADDITIONAL FINDINGS: None. IMPRESSION: Moderate left varicocele. No testicular parenchymal abnormality.
--- NOTE | 2024-06-26 12:37 | ER ---
Nurse's Notes [facility] Name: Cirilo Mallory Age: 54 yrs Sex: Male : 1970 Arrival Date: 06/26/2024 Time: 10:11 Bed 19 Private MD: Diagnosis: Hydrocele, unspecified Presentation: 06/26 10:16 Chief complaint: Patient states: seen here for LLQ and was treated for diverticulitis. aa5 Pt reports pain is worse now and radiating down to left testicle. Pt reports nausea and diarrhea. 10:16 Onset of symptoms was June 2024. aa5 10:16 Coronavirus screen: At this time, the client does not indicate any symptoms associated aa5 with coronavirus-19. Ebola Screen: Patient denies travel to an Ebola-affected area in the 21 days before illness onset. Initial Sepsis Screen: Does the patient meet any 2 criteria? No. Patient's initial sepsis screen is negative. Does the patient have a suspected source of infection? No. Patient's initial sepsis screen is negative. Risk Assessment: Do you want to hurt yourself or someone else? Patient reports no desire to harm self or others. 10:16 Method Of Arrival: Ambulatory aa5 10:16 Acuity: SYLVIA 3 aa5 Historical: - Allergies: 10:32 No Known Allergies; aa5 - PMHx: 10:32 GERD; aa5 - PSHx: 10:32 hiatal hernia; Left hip; left knee; aa5 - Immunization history:: Adult Immunizations unknown. - Infectious Disease History:: Denies. - Social history:: Smoking status: Patient reports the use of cigarette tobacco products. Screenin:31 [facility] ED Fall Risk Assessment (Adult) History of falling in the last 3 months, db including since admission No falls in past 3 months (0 pts) Confusion or Disorientation No (0 pts) Intoxicated or Sedated No (0 pts) Impaired Gait No (0 pts) Mobility Assist Device Used No (0 pt) Altered Elimination No (0 pt) Score/Fall Risk Level 0 - 2 = Low Risk Oriented to surroundings, Maintained a safe environment. Abuse screen: Denies threats or abuse. Denies injuries from another. Nutritional screening: No deficits noted. Tuberculosis screening: No symptoms or risk factors identified. Assessment: 10:45 Reassessment: Patient appears in no apparent distress at this time. Patient and/or db family updated on plan of care and expected duration. Pain level reassessed. Patient is alert, oriented x 3, equal unlabored respirations, skin warm/dry/pink. General: Appears in no apparent distress. comfortable, Behavior is calm, cooperative. Pain: Complains of pain in pelvis. Pain: Pain radiates to right testicle. Neuro: Level of Consciousness is awake, alert, obeys commands, Oriented to person, place, time, situation. Respiratory: Airway is patent Respiratory effort is even, unlabored, Respiratory pattern is regular, symmetrical. GI: Reports lower abdominal pain. 11:31 Reassessment: Patient appears in no apparent distress at this time. Patient and/or db family updated on plan of care and expected duration. Pain level reassessed. Patient is alert, oriented x 3, equal unlabored respirations, skin warm/dry/pink. 12:52 Reassessment: Patient appears in no apparent distress at this time. Patient and/or db family updated on plan of care and expected duration. Pain level reassessed. Patient is alert, oriented x 3, equal unlabored respirations, skin warm/dry/pink. 12:52 Reassessment: Patient states feeling better. Patient states symptoms have improved. db Vital Signs: 10:16 BP 144 / 93; Pulse 86; Resp 16 S; Temp 98.7(O); Pulse Ox 98% on R/A; Weight 106.59 kg aa5 (R); Height 6 ft. 2 in. (R); 11:20 BP 153 / 107; Pulse 76; Resp 16; Pulse Ox 97% on R/A; db 12:40 BP 174 / 107; Pulse 75; Resp 16; Pulse Ox 97% ; db 10:16 Body Mass Index 30.17 (106.59 kg, 187.96 cm) aa5 ED Course: 10:14 Patient arrived in ED. al6 10:15 Damián Gonzalez MD is Attending Physician. ec2 10:16 Arm band placed on Patient placed in an exam room, on a stretcher. aa5 10:18 France Ulloa, ARMEN is Primary Nurse. db 10:35 Triage completed. aa5 10:45 Initial lab(s) drawn, by me, sent to lab. Urine collected: clean catch specimen. db Inserted saline lock: 20 gauge in right antecubital area, using aseptic technique. Blood collected. Flushed with 10 mL NS. 10:[address] via wheelchair. db 11:02 Patient has correct armband on for positive identification. Bed in low position. Call db light in reach. Side rails up X 1. 11:23 Scrotum Testicles US In Process Unspecified. EDMS 12:36 Zain Munroe MD is Referral Physician. ec2 12:53 Provided Education on: DISCHARGE AND FOLLOWUP. Pulse ox on. NIBP on. Warm blanket given.db 12:53 No provider procedures requiring assistance completed. IV discontinued, intact, db bleeding controlled, No redness/swelling at site. Administered Medications: 11:20 Drug: Ketorolac IVP 15 mg IVP once Route: IVP; Site: right antecubital; db 12:54 Follow up: Response: No adverse reaction db 11:20 Drug: Ondansetron IVP 4 mg IVP once; over 2 minutes Route: IVP; Site: right antecubital;db 12:53 Follow up: Response: No adverse reaction db Medication: 10:45 VIS not applicable for this client. db Outcome: 12:36 Discharge ordered by . ec2 12:53 Discharged to home ambulatory, with family, db 12:53 Condition: stable 12:53 Discharge instructions given to patient, family, Instructed on discharge instructions, follow up and referral plans. 12:54 Patient left the ED. db Signatures: Dispatcher [employer] EDBel Lamar RN RN aa5 France Ulloa RN RN Damián Be MD MD ec2 Jerica Topete
--- NOTE | 2024-06-26 12:37 | EDPHYS ---
Physician Documentation [facility] Name: Cirilo Mallory Age: 54 yrs Sex: Male : 1970 Arrival Date: 06/26/2024 Time: 10:11 Bed 19 Private MD: ED Physician Damián Gonzalez HPI: 06/26 10:31 This 54 yrs old Male presents to ER via Unassigned with complaints of groin ec2 pain. 10:31 Patient arrives today for left testicular pain going into the abdomen. Patient reports ec2 previously seeing, diagnosed with diverticulitis, pain got better and has now progressed and worsened. Patient complaining of left testicular pain. Reports some increased urinary frequency as well. No hematuria. . Historical: - Allergies: 10:32 No Known Allergies; aa5 - PMHx: 10:32 GERD; aa5 - PSHx: 10:32 hiatal hernia; Left hip; left knee; aa5 - Immunization history:: Adult Immunizations unknown. - Infectious Disease History:: Denies. - Social history:: Smoking status: Patient reports the use of cigarette tobacco products. ROS: 10:32 Constitutional: as per hpi ec2 Exam: 10:32 Constitutional: GEN: NAD Head: atraumatic Eyes: EOMI Ears: External ears are ec2 normal. CV: regular rate LUNGS: no respiratory distress ABD: non-distended, soft, tender in the lower abdomen, no guarding or rigid. performed under supervision, ARMEN Smith, examination: Positive cremasteric reflex bilaterally, tenderness to the testicle SKIN: no evidence of rashes MSK: no evidence of trauma Vital Signs: 10:16 BP 144 / 93; Pulse 86; Resp 16 S; Temp 98.7(O); Pulse Ox 98% on R/A; Weight 106.59 kg aa5 (R); Height 6 ft. 2 in. (R); 11:20 BP 153 / 107; Pulse 76; Resp 16; Pulse Ox 97% on R/A; db 12:40 BP 174 / 107; Pulse 75; Resp 16; Pulse Ox 97% ; db 10:16 Body Mass Index 30.17 (106.59 kg, 187.96 cm) aa5 MDM: 10:20 Medical Screening Exam initiated ec2 10:32 Data reviewed: vital signs, nurses notes. ED course: Patient arrives today for ec2 evaluation of left testicular pain. Examination etiology findings as above. Will obtain lab work, urine studies, ultrasonography and treat the patient's pain. DDx includes epididymitis, doubt diverticulitis, doubt torsion. 12:22 ED course: u/s shows varicocele, will instruct the patient on scrotal support and have ec2 the pt f/u w/ urology. 06/26 10:31 Order name: CBC with Diff; Complete Time: 11: ec2 06/26 10:31 Order name: CMP; Complete Time: 11: ec2 06/26 10:31 Order name: UAM; Complete Time: 11: ec2 06/26 10:31 Order name: Scrotum Testicles US; Complete Time: 12: ec2 06/26 10:31 Order name: IV; Complete Time: 11:00 ec2 Administered Medications: 11:20 Drug: Ketorolac IVP 15 mg IVP once Route: IVP; Site: right antecubital; db 12:54 Follow up: Response: No adverse reaction db 11:20 Drug: Ondansetron IVP 4 mg IVP once; over 2 minutes Route: IVP; Site: right antecubital;db 12:53 Follow up: Response: No adverse reaction db Disposition Summary: 06/26/24 12:36 Discharge Ordered Notes: Location: Home ec2 Condition: Stable ec2 Diagnosis - Hydrocele, unspecified ec2 Followup: ec2 - With: Private Physician - When: - Reason: Re-evaluation by your physician Followup: ec2 - With: Zain Munroe MD - When: - Reason: Recheck today's complaints Discharge Instructions: - Discharge Summary Sheet db - Hydrocele, Adult ec2 Forms: - Family Work Release db - Medication Reconciliation Form ec2 - Antibiotic Education ec2 - Prescription Opioid Use ec2 - Patient Portal Instructions ec2 - Leadership Thank You Letter ec2 Signatures: Dispatcher [employer] Bel Causey, RN RN aa5 France Ulloa RN RN db Damián Gonzalez MD MD ec2
[2024-06-26 13:35] VITALS: TEMP 98.7
[2024-06-26 13:36] VITALS: O2SAT 97
[2024-06-26 13:37] VITALS: BP 174/107
== END 2024-06-26 12:54 | disposition home or self-care (01) ==
LOC: ER 10:11
DX: N43.3 Hydrocele, unspecified (principal); Z72.0 Tobacco use
CPT/HCPCS: 85025; 81001; 36415; 80053; 76870; 96375; 96374; 99285; J2405

== ENCOUNTER 2024-06-30 15:18 | Emergency (ER) | payer OTHER ==
--- OUTSIDE RECORDS SUMMARY | 2024-06-30 15:22 | XMS REPORT | Continuity of Care Document ---
Author Name Unknown Address [address] [facility] [phone] [facility] [place] Address [address] [facility] [address] [phone] Care Team Providers Care Software Applications Engineer Name Role Phone GA SAMUEL JR Primary Care Physician Unavai Fer Snyder Attending Clinician Unavailable Kaity Correa Attending Clinician Unavailable Scot West Attending Clinician Unavailable LEXUS MACIAS Attending Clinician Unava ilable ROMIE COWART Attending Clinician Unavail able ROMIE COWART Attending Clinician Unavail able Romie Cowart MD Attending Clinician MYRA SOTO Attending Clinician Unavailable LAB90 Attending Clinician Unavailable Lexus Macias MD Attending Clinician [phone] Tony Lazaro MD Attending Clinician Therapy, [facility] Cov[facility] Infusion Attending Clinician Unavailable Isaac Bernard MD Attending Clinician [phone] ISAAC BERNARD Attending Clinician Unavailable ROMIE COWART Admitting Clinician Unavail able Payers Payer Name Policy Type Policy Number Effective Date Expirati on Date Source CIGNA 2 [id number] 2021 00:00:00 CIGNA II [id number] 2018 00:00:00 CIGNA C1 [id number] 2018 00:00:00 [facility] Problems Condition Name Condition Details Condition Category Status Onset Date Resolution Date Last Treatment Date Treating Clinician Comments Source [id number] 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 [facility] [id number] Obstructiv e sleep apnea syndrome Problem Active [facility] [id number] Seasonal allergies Problem Active [facility] Obesity due to excess calories Other obesity due to excess calories Problem Active [facility] [id number] Anxiety Problem Active [facility] Gastroesop [...] NO KNOWN ALLERGIE S Drug Class Active [facility] Social History Social Habit Start Date Stop Date Quantity Comments Source History of Tobacco Use Former Smoker [facility] Sex Assigned At [facility] Sexual orientation U [facility] Exposure to SARS-CoV-2 (event) Yes Fabienne mcmillan History of Social function 2023-12-18 00:00:00 2023-12-18 00:00:00 Fabienne Portillo - External Tobacco use and exposure 2023-06-29 00:00:00 2023-06-29 00:00:00 User of smokeless tobacco Fabienne [place] Argueta Sex 2021-01-05 15:27:30 2021-01-05 15:27:30 Male (finding) Fabienne Argueta Smoking Status Start Date Stop Date Source Tobacco smoking consumption unknown [facility] Never smoked tobacco Fabienne Duvallhipolito Kei Argueta Former Smoker 2020-02-12 00:00:00 2020-02-12 00:00:00 [facility] Medications Ordered Medication Name Filled Medication Name Start Date Stop Date Current Medication? Ordering Clinician Indication Dosage Frequency Signature (SIG) Comments Components Source ketoconazol e 2 % - triamcinolo ne 0.1 % cream 2023-04 00:00: 00 Yes [id number] .25g Apply 0.25 g to affected area(s) in the morning and 0.25 g in the evening. [facility] methylPREDN ISolone 4 MG oral Tablet Therapy Pack 12-17 00:00: 00 Yes [id number] 1{tammy} Take 1 tammy by mouth See Admin Instructio ns Use as directed. Fabienne alexis Pseudoeph-B romphen-DM 30-2-10 MG/5ML oral Syrup 12-17 00:00: 00 Yes [id number] 10mL Q.25D Take 10 mL by mouth 4 times daily as needed. Fabienne alexis Azithromyci n 250 MG oral Tablet 12-17 00:00: 00 12-23 04:59 :00 No [id number] Take 2 tablets by mouth on day [...] MG oral Tablet 06-28 00:00: 00 Yes [id number] 4mg Q.86254160 [id number] 3D Take 1 tablet (4 mg total) [...] 08-26 00:00: 00 09-03 04:59 :00 No [id number] 500mg Take 1 tablet (500 mg total) by mouth in the morning and 1 tablet (500 mg total) in the evening. Do all this for 7 days. Fabienne Portillo Ketorolac Tromethamin e (TORADOL) 60 mg/2 mL 04-28 20:15: 00 04-28 20:10 :00 No [id number] 60mg Fabienne Portillo Alprazolam 0.5 MG oral [...] MG oral Tablet 04-28 00:00: 00 Yes [id number] 10mg Q.57462992 [id number] 3D Take 1 tablet (10 mg total) by mouth every 8 hours as needed for muscle spasms Fabienne Cohudhury Externa vanesa Acetaminoph en-Codeine 300-30 MG oral Tablet 04-28 00:00: 00 Yes [id number] 1{tbl} Q.25D Take 1 tablet by mouth every 6 hours as needed for pain Fabienne Choudhury Externa vanesa Ibuprofen 800 MG oral Tablet 04-28 00:00: 00 Yes [id number] 800mg Q.25D Take 1 tablet (800 mg [...] MG oral Tablet 2020-04 00:00: 00 Yes [id number] 1{tbl} Take 1 tablet by mouth 2 times daily Fabienne Boyda vanesa Citalopram Hydrobromid e 20 MG oral Tablet [...] Tablet Therapy Pack 01-06 00:00: 00 Yes [id number] 1{tammy} Take 1 tammy by mouth See Admin Instructio ns Use as directed Fabienne alexis methylPREDN ISolone 4 MG oral Tablet Therapy Pack 01-06 00:00: 00 Yes [id number] 1{tammy} Take 1 tammy by mouth See Admin Instructio ns Use as directed Fabienne Portillo Azithromyci n 250 MG oral Tablet 01-06 00:00: 00 01-12 04:59 :00 No [id number] Take 2 tablets by mouth on day 1 then 1 tablet by mouth daily for 4 days thereafter . Fabienne Portillo iohexol (OMNIPAQUE 350 BULK-100 mL) injection 100 mL 01-03 10:30: 00 01-03 10:12 :00 No [id number] 100mL 100 mL, Intravenou s, ONCE, 1 dose, On 01/03/21 at 0530, Routine [facility] No known medications 01-03 03:41: 46 No [facility] Benzonatate 200 MG oral Capsule 01-03 00:00: 00 Yes 200mg Take 200 mg by mouth Fabienne alexis casirivimab -imdevimab 1200 mg in 60 mL NS MINI-BAG 01-01 18:30: 00 01-01 15:15 :00 No [id number] 1200mg 1,200 mg, IV Infusion, ONCE, Administer over 20 Minutes, On 01/01/21 at 1330, For 1 dose
Ad kiln transfer operator as an IV infusion via pump or gravity through an intravenou s line containing a sterile, in-line or add-on 0.2-micron polyethers ulfone (PES) filter.&nb sp;Stable 36 hours refrigerat ed; 4 hours at room temperatur e. &nbs p;
[facility] Montelukast Sodium 10 MG Montelukast Sodium [...] Systolic blood pressure 2024-02-17 19:32:00 158 mm[Hg] [facility] Diastolic blood pressure 2024-02-17 19:32:00 104 mm[Hg] [facility] Heart rate 2024-02-17 19:32:00 77 /min [facility] Body temperature 2024-02-17 19:32:00 36.89 Comfort [facility] Respiratory rate 2024-02-17 19:32:00 16 /min [facility] Body height 2024-02-17 19:32:00 188 cm [facility] Body weight 2024-02-17 19:32:00 113.399 kg [facility] BMI 2024-02-17 19:32:00 32.10 kg/m2 [facility] Oxygen saturation in Arterial blood by Pulse oximetry 2024-02-17 19:32:00 100 /min [facility] Systolic blood pressure 2023-12-18 20:49:00 120 mm[Hg] Fabienne Tang ld - External Diastolic blood pressure 2023-12-18 20:49:00 76 mm[Hg] Fabienne Ivano ld - External Heart rate 2023-12-18 20:49:00 83 /min Rosette Portillo - External Body temperature 2023-12-18 20:49:00 37.06 Comfort Fabienne Portillo - External Respiratory rate 2023-12-18 20:49:00 18 /min Fabienne Portillo - External Body height 2023-12-18 20:49:00 188 cm Juanita ey Seybold - External Body weight 2023-12-18 20:49:00 116.574 [...] External Body weight 2023-06-29 18:24:00 113.399 kg Juainta ey Seybold - External BMI 2023-06-29 18:24:00 [...] Seybold Body height 2021-08-26 15:00:00 190.5 cm Ujanita ey Seybold Body weight 2021-08-26 15:00:00 108.41 [...] Systolic blood pressure 2021-01-03 11:00:00 116 mm[Hg] [facility] Diastolic blood pressure 2021-01-03 11:00:00 72 mm[Hg] [facility] Heart rate 2021-01-03 11:00:00 87 /min [facility] Respiratory rate 2021-01-03 11:00:00 22 /min [facility] Oxygen saturation in Arterial blood by Pulse oximetry 2021-01-03 11:00:00 95 /min [facility] Body temperature 2021-01-03 08:40:00 36.78 Comfort [facility] Body height 2021-01-03 08:40:00 190.5 cm [facility] Body weight 2021-01-03 08:40:00 99.791 kg [facility] BMI 2021-01-03 08:40:00 27.50 kg/m2 [facility] Systolic blood pressure 2021-01-01 15:43:00 119 mm[Hg] [facility] Diastolic blood pressure 2021-01-01 15:43:00 78 mm[Hg] [facility] Heart rate 2021-01-01 15:43:00 97 /min [facility] Body temperature 2021-01-01 15:43:00 36.89 Comfort [facility] Respiratory rate 2021-01-01 15:43:00 18 /min [facility] Oxygen saturation in Arterial blood by Pulse oximetry 2021-01-01 15:43:00 97 /min [facility] Body height 2021-01-01 14:40:00 190.5 cm [facility] Body weight 2021-01-01 14:40:00 99.791 kg [facility] BMI 2021-01-01 14:40:00 27.50 kg/m2 [facility] blood pressure diastolic 2020-01-30 15:20:00 88 mm[Hg] Common [facility] height 2020-01-30 15:20:00 74 [in_i] Commo n [facility] weight 2020-01-30 15:20:00 245.0 [lb_av] Co mmon [facility] temperature 2020-01-30 15:20:00 98.2 [degF] Com mon [facility] bmi 2020-01-30 15:20:00 31.45 kg/m2 Comm on [facility] oximetry 2020-01-30 15:20:00 97 % Commo n [facility] respiratory rate 2020-01-30 15:20:00 18 /min Common [facility] blood pressure systolic 2020-01-30 15:20:00 138 mm[Hg] Common [facility] height 2020-01-19 14:00:00 74 [in_i] Commo n [facility] weight 2020-01-19 14:00:00 243.8 [lb_av] Co mmon [facility] temperature 2020-01-19 14:00:00 98.8 [degF] Com mon [facility] bmi 2020-01-19 14:00:00 31.3 kg/m2 Commo n [facility] oximetry 2020-01-19 14:00:00 97 % Commo n [facility] respiratory rate 2020-01-19 14:00:00 19 /min Common [facility] blood pressure systolic 2020-01-19 14:00:00 135 mm[Hg] [facility] blood pressure diastolic 2020-01-19 14:00:00 88 mm[Hg] [facility] Procedures Procedure Date / Time Performed Performing Clinicia n Source URINALYSIS 2024-02-17 21:21:00 Romie Cowart [facility] TROPONIN I 2024-02-17 21:20:00 Romie Cowart [facility] COMP. METABOLIC PANEL ([id number]) 2024-02-17 21:20:00 Romie Cowart [facility] CBC WITH DIFF 2024-02-17 21:20:00 Romie Cowart [facility] N-TERMINAL PRO-BNP 2024-02-17 21:20:00 Romie Cowart [facility] MAGNESIUM 2024-02-17 21:20:00 Romie Cowart [facility] XR CHEST 1 VW 2024-02-17 20:28:54 Romie Cowart [facility] URINALYSIS NONAUTO W/O SCOPE 2021-08-26 15:11:00 Lexus Macias [facility] CT CHEST PULMONARY ANGIOGRAM 2021-01-03 10:17:59 Tony Lazaro [facility] XR CHEST 1 VW 2021-01-03 09:10:29 Tony Lazaro [facility] TROPONIN I 2021-01-03 08:55:00 Tony Lazaro [facility] COMP. METABOLIC PANEL ([id number]) 2021-01-03 08:55:00 Tony Lazaro [facility] CBC WITH DIFF 2021-01-03 08:55:00 Tony Lazaro [facility] N-TERMINAL PRO-BNP 2021-01-03 08:55:00 Tony Lazaro [facility] Encounters Start Date/Time End Date/Time Encounter Type Admission Type Attending [facility] Facility Care Department Encounter ID Source 2024-06-26 11:42:00 Outpatient [place] [facility] [id number] [facility] 2021-05-04 12:09:00 Outpatient Kaity [facility] [id number] [facility] 2021-05-04 12:03:25 Outpatient Kaity Correa [facility] [id number] [facility] 2021-05-04 12:03:02 Outpatient Kaity Correa [facility] [id number] [facility] 2021-05-04 12:02:22 Outpatient MadelineKaity [facility] [id number] [facility] 2021-05-04 11:59:55 Outpatient Madeline, Kaity [facility] [id number] [facility] 2021-05-04 11:58:53 Outpatient MadelineKaity [facility]LMLC [facility] [id number] [facility] 2021-05-04 11:54:25 Outpatient MadelineKaity STLMLC [facility] [id number] [facility] 2021-05-04 11:54:12 Outpatient MadelineKaity [facility] [id number] [facility] 2021-05-04 11:53:26 Outpatient Scot West [facility] [id number] [facility] 2021-02-08 01:28:54 Emergency [facility] [id number] [facility] 2024-06-25 00:00:00 2024-06-25 00:00:00 Outpatient LEXUS MACIAS [id number] [facility] 2024-02-17 13:34:00 2024-02-17 17:49:00 Emergency X ROMIE COWART [facility] ERT [id number] [facility] 2024-02-17 13:34:00 2024-02-17 17:49:00 Emergency Romie Cowart [facility] [id number] [facility] 2024-02-08 00:00:00 2024-02-08 00:00:00 Outpatient LEXUS MACIAS [id number] [facility] 2023-12-18 15:30:00 2023-12-18 15:30:00 Outpatient MYRA SOTO [id number] Fabienne [facility] 2023-11-05 00:00:00 2023-11-05 00:00:00 Outpatient LEXUS MACIAS FABIENNE [id number] Fabienne [facility] 2023-09-07 00:00:00 2023-09-07 00:00:00 Outpatient LEXUS MACIAS FABIENNE [id number] Fabienne [facility] 2023-06-29 14:15:00 2023-06-29 14:15:00 Outpatient LABChristopher NEWBERRY FABIENNE [id number] Fabienne [facility] 2023-06-29 13:30:00 2023-06-29 13:30:00 Outpatient LEXUS MACIAS FABIENNE NEW[place]Y [id number] Fabienne [facility] 2021-08-29 00:00:00 2021-08-29 00:00:00 Outpatient LEXUS MACIAS FABIENNE NEW[place]Y [id number] Fabienne [facility] 2021-08-26 10:30:00 2021-08-26 10:30:00 Outpatient LABChristopher NEWBERRY FABIENNE [id number] [facility] 2021-08-26 10:00:00 2021-08-26 10:15:00 Office Visit CapronLexus mcclure [place] [id number] [id number] Fabienne [facility] 2021-04-28 13:45:00 2021-04-28 14:00:00 Office Visit Lexus Macias [place] [id number] Fabienne [facility] 2021-03-01 14:30:00 2021-03-01 15:00:00 Office Visit Lexus Macias [place] [id number] Fabienne [facility] 2021-01-06 07:54:14 2021-01-06 08:24:14 Office Visit Lexus Macias [place] [id number] [id number] Fabienne Portillo 2021-01-03 03:45:00 2021-01-03 06:38:00 Emergency Tony Lazaro [facility] [id number] [facility] 2021-01-01 11:33:07 2021-01-01 12:33:07 Nurse Visit Therapy, Isaac Zamora [facility] Office Building [id number] [facility] 2021-01-01 09:30:00 2021-01-01 09:30:00 Outpatient ISAAC HOWELL [facility] [id number] [facility] 2021-01-01 09:30:00 2021-01-01 09:30:00 Outpatient ISAAC HOWELL [facility] [id number] [facility] 2020-02-13 00:00:00 2020-02-13 00:00:00 OFFICE VISIT EST PT LEVEL 3 STLMLC STL[facility]C [id number] [facility] 2020-02-03 00:00:00 2020-02-03 00:00:00 (TEL) STLMLC STLMLC [id number] [facility] 2020-01-30 00:00:00 2020-01-30 00:00:00 (TEL) STLMLC STLMLC [id number] [facility] 2020-01-30 00:00:00 2020-01-30 00:00:00 OFFICE VISIT ESTAB PT LEVEL 4 STLMLC STLMLC [id number] [facility] 2020-01-19 00:00:00 2020-01-19 00:00:00 OFFICE VISIT EST PT LEVEL 3 STLMLC STLMLC [id number] [facility] Results Test Description Test Time Test Comments Results Result Co mments Source [facility] [id number] 21:57:05* Test Item Value Reference Range Interpretation Comme nts NT-proBNP (test code = 04076-7) <=125 Lab Interpretation (test cod e = 44339-9) Normal [facility] 1 [id number] 21:50:31EXAM: XR CHEST 1 02/17/2024 1:57 PM HISTORY: 54 years old Male with malaise TECHNIQUE: Portable AP view of the chest. COMPARISON: Chest radiograph 01/03/2021 FINDINGS: Lungs and pleura: The lungs are clear. No focal consolidation,pneumothorax, or pleural effusion is seen. Cardiomediastinal: The cardiomediastinal silhouette is normal accountingfor technique. Musculoskeletal: No acute osseous abnormality. [facility] Met[facility] Panel ([id number])2024-02-17 21:46:24* Test Item Value Reference Range Interpretation Comme nts NA (test code = 0431173616) 137 mmol/L 135-145 K (test code = 5648536908) 4.1 mmol/L 3.5-5.0 CL (test code = 0135383382) 103 mmol/L 98-108 CO2 TOTAL (test code = 4752180525) 25 mmol/L 23-31 AGAP (test code = 6927639612) 9 2-16 BUN (test code = 5492784444) 14 mg/dL 7-23 GLUCOSE (test code = 3807562411) 107 mg/dL 70-110 CREATININE (test code = 2160-0) 0.86 mg/dL 0.60-1.25 TOTAL BILI (test code = 5497410148) 0.5 mg/dL 0.1-1.1 CALCIUM (test code = 1484404193) 9.1 mg/dL 8.6-10.6 T PROTEIN (test code = 4419185424) 7.4 g/dL 6.3-8.2 ALBUMIN (test code = 3945676147) 4.8 g/dL 3.5-5.0 ALK PHOS (test code = 2052250653) 69 U/L 34-122 ALTv (test code = 1742-6) 48 U/L 5-50 AST(SGOT) (test code = 2042267727) 47 U/L 13-40 H eGFR (test code = 53007-2) 102.9 mL/min/1.73m2 CKD-EPI eGFR (2020). Assuming creatinine has been stable day-to-day for at least three months, the eGFR indicates Category G1 (>= 90 mL/min/1.73 m2) Lab Interpretation (test code = 01470-0) Abnormal [facility]2024-[facility]-10 21:46:24* Test Item Value Reference Range Interpretation Comme nts MAGNESIUM (test code = 5095972970) 2.1 mg/dL 1.7-2.4 Lab Interpretation (test cod e = 76926-8) Normal [facility] with [id number] 21:33:44* Test Item Value Reference Range Interpretation [...] 34.3 g/dL 31.2-35.0 RDW-SD (test code = 83658-0) 41.9 fL 38.5-51.6 RDW-CV (test code = 788-0) 12.1 % 12.1-15.4 PLT (test code = 777-3) 246 150-328 MPV (test code = 93861-3) 9.6 fL 9.8-13.0 L NRBC/100 WBC (test code = 1896045690) 0.0 0.0-10.0 NRBC x10^3 (test code = 2839189600) See_Comment [Automated messa ge] The system which generated this result transmitted reference range: 10*3/?L. The reference range was not used to interpret this result as normal/abnormal. GRAN MAT (NEUT) % (test code = 770-8) 70.0 % IMM GRAN % (test code = 9658000628) 0.50 % LYMPH % (test code = 736-9) 18.9 % MONO % (test code = 5905-5) 10.1 % EOS % (test code = 713-8) 0.0 % BASO % (test code = 706-2) 0.5 % GRAN MAT x10^3(ANC) (test code = 4380070843) 5.87 10*3/uL 1.99-6.95 IMM GRAN x10^3 (test code = 4259180418) 0.04 10*3/uL 0.00-0.06 LYMPH x10^3 (test code = 731-0) 1.58 10*3/uL 1.09-3.23 MONO x10^3 (test code = 742-7) 0.85 10*3/uL 0.36-1.02 EOS x10^3 (test code = 711-2) 0.06-0.53 L BASO x10^3 (test code = 704-7) 0.04 10*3/uL 0.01-0.09 Lab Interpretation (test code = 42409-2) Abnormal [facility] NONAUTO W/O [id number] 15:12:00* Test Item Value Reference Range Interpretation Comme nts UD KETONES (test code = 102009) 5 mg/dL 5-160 UD GLUCOSE (test code = 020184) neg 100-2000 UD PROTEIN (test code = 272138) neg Trace - 2000 mg/dL UD LEUKOCYTES (test code = 543236) neg Trace - Large @ 2 min. UD NITRITE (test code = 301431) neg Neg. - Pos. @ 60 sec. UD UROBILINOGEN (test code = 168877) 0.2 mg/dL 0.2-8 UD PH (test code = 108629) See_Comment [Automated OUYAa ge] The system which generated this result transmitted reference range: 5.0 - 8.5 @ 60 sec.. The reference range was not used to interpret this result as normal/abnormal. UD BLOOD (test code = 391073) trace Neg. - Large @ 60 sec. UD SPECIFIC GRAVITY (test code = 438087) See_Comment [Automated message] The system which generated this result transmitted reference range: 1.000 - 1.030 @ 45 sec.. The reference range was not used to interpret this result as normal/abnormal. UD BILIRUBIN (test code = 398691) neg Neg. - Large @ 45 sec. Lab Interpretation (test code = 88768-3) Abnormal Fabienne Farris [id number] 09:35:42* Test Item Value Reference Range Interpretation Comments TROPONIN I (test code = 3209566845) 0.002 ng/mL See_Comment [Automated message] The system [...] of biotin. Lab Interpretation (test code = 12594-7) Normal [facility] [id number] 09:32:39* Test Item Value Reference Range Interpretation Comme nts NT-proBNP (test code = 7063463127) 55 pg/mL See_Comment [Automated message] The system which generated this result transmitted reference range: <=125. The reference range was not used to interpret this result as normal/abnormal. ROC (test code = ROC) Biotin has been reported to cause a negative bias, interpret results relative to patient's use of biotin. Lab Interpretation (test code = 64721-4) Normal [facility] METABOLIC PANEL (61140)2021-01-03 09:18:24* Test Item Value Reference Range Interpretation Comme nts NA (test code = 2291145832) 135 mmol/L 135-145 K (test code = 5891692962) 3.7 mmol/L 3.5-5.0 CL (test code = 9436225736) 101 mmol/L 98-108 CO2 TOTAL (test code = 1842152020) 29 mmol/L 23-31 AGAP (test code = 7411914874) 2-16 BUN (test code = 4120014433) 10 mg/dL 7-23 GLUCOSE (test code = 0230054841) 116 mg/dL 70-110 H CREATININE (test code = 8758269460) 0.66 mg/dL 0.60-1.25 TOTAL BILI (test code = 4021255181) 0.5 mg/dL 0.1-1.1 CALCIUM (test code = 5864816809) 8.4 mg/dL 8.6-10.6 L T PROTEIN (test code = 3962102045) 6.8 g/dL 6.3-8.2 ALBUMIN (test code = 2646587070) 3.8 g/dL 3.5-5.0 ALK PHOS (test code = 9345592924) 72 U/L 34-122 ALTv (test code = 1742-6) 76 U/L 5-50 H AST(SGOT) (test code = 3555931508) 72 U/L 13-40 H eGFR (test code = 7130418052) mL/min/1.73m2 ROC (test code = ROC) Association [...] imaging tests). Lab Interpretation (test code = 58700-0) Abnormal [facility] WITH [id number] 09:03:39* Test Item Value Reference Range Interpretation Comme nts WBC (test code = 6690-2) See_Comment [Automated [employer]chant [employer]] The system which generated this result transmitted reference range: 4.20 - 10.70 10*3/?L. The reference range was not used to interpret this result as normal/abnormal. RBC (test code = 789-8) See_Comment [Automated OUYAa Catbird] The system which generated this result transmitted [...] 34.7 g/dL 31.2-35.0 RDW-SD (test code = 42143-0) 41.5 fL 38.5-51.6 RDW-CV (test code = 788-0) 11.9 % 12.1-15.4 L PLT (test code = 777-3) See_Comment [Automated [employer]] The system which generated this result transmitted reference range: 150 - 328 10*3/?L. The reference range was not used to interpret this result as normal/abnormal. MPV (test code = 16393-8) 9.7 fL 9.8-13.0 L NRBC/100 WBC (test code = 6062075823) See_Comment [Automated me ssage] The system which generated this result transmitted reference range: 0.0 - 10.0 /100 WBCs. The reference range was not used to interpret this result as normal/abnormal. NRBC x10^3 (test code = 9463203987) <0.01 See_Comment [Automated messa ge] The system which generated this result transmitted reference range: 10*3/?L. The reference range was not used to interpret this result as normal/abnormal. GRAN MAT (NEUT) % (test code = 770-8) 75.6 % IMM GRAN % (test code = 8066955318) 0.30 % LYMPH % (test code = 736-9) 16.8 % MONO % (test code = 5905-5) 6.9 % EOS % (test code = 713-8) 0.2 % BASO % (test code = 706-2) 0.2 % GRAN MAT x10^3(ANC) (test code = 1094702997) 4.60 10*3/uL 1.99-6.95 IMM GRAN x10^3 (test code = 3416977122) <0.03 0.00-0.06 LYMPH x10^3 (test code = 731-0) 1.02 10*3/uL 1.09-3.23 L MONO x10^3 (test code = 742-7) 0.42 10*3/uL 0.36-1.02 EOS x10^3 (test code = 711-2) <0.03 0.06-0.53 L BASO x10^3 (test code = 704-7) <0.03 0.01-0.09 Lab Interpretation (test code = 96327-2) Abnormal [facility] Notes Date/Time Note Provider Source 2024-02-17 13:31:47 Patient states: "It started at the beginning of the week. I say lightheadedness but something is not right. Also I have ringworm on my ear and I need some meds because I can't get rid of it" Pmhx: GERD. ER GRADER Lucy Hamm RN [facility] 2024-02-17 13:13:00 [facility] Emergency Department Note Patient Name: Cirilo Mallory Date of : 1970 54 year old male Treatment Room: [facility] Primary Care Physician: PATIENT DOES NOT HAVE [...] 0.01 - 0.09 10*3/uL COMP. METABOLIC PANEL (82483) - Abnormal NA 137 135 - 145 [...] CONTRAST Cbc with Diff Comp. Metabolic Panel (01796) Troponin I N-Terminal Pro-Bnp Magnesium Urinalysis Orders Placed This Encounter Medications ketoconazole 2 % - triamcinolone 0.1 % cream First Provider Eval: ED Events Date/Time Event User Comments 02/17/24 132 Medical Screening Begins ROMIE COWART MD P -- 02/17/24 132 First Provider Evaluation ROMIE COWART MD -- [...] Electronically signed by: Romie Cowart MD 02/17/241740 [facility] 2023-12-18 15:51:48 Chief Complaint Patient presents with Sinus Problem Clear sinus drainage, sinus pressure, cough, sore throat Heena Watters MA II Heena Watters MA, II [facility]
[2024-06-30] MEDS ORDERED: LORazepam 2 MG/ML VIAL ONE (16:07)
[2024-06-30] MEDS ORDERED: NA CHLORIDE 0.9% 1,000 ML ONE (16:08)
[2024-06-30] MEDS ORDERED: ASPIRIN 81 MG CHEWABLE TABLET ONE (16:08)
[2024-06-30 16:10] LABS: Absolute Lymphocytes (CBC) 1.2 K/uL (0.7-4.9); Absolute Monocytes 0.8 K/uL (0.1-1.3); Absolute Neutrophil 8.8 K/uL (1.8-8.0); Basophils % 0.3 % (0-1.3); Eosinophils % 0.2 % (0-4.4); Hemoglobin 16.3 g/dL (13.6-17.9); Lymphocytes % 11.3 % (15.3-44.8); MCH 32.8 pg (27.0-35.0); MCHC 35.3 g/dL (32.0-36.0); Monocytes % 7.4 % (3.3-12.3); Neutrophils % 80.8 % (41.7-73.7); Nucleated Red Blood Cells % 0.1 % (0-0); Platelets 301 thou/uL (152-406); RBC Red Blood Cell Count 4.95 M/uL (4.33-5.43); Red Cell Distribution Width 12.9 % (12.1-15.2)
[2024-06-30 16:24] LABS: PT Prothrombin Time 11.4 SECONDS (10-13.0)
--- NOTE | 2024-06-30 16:31 | RAD REPORT ---
EXAMINATION: ONE VIEW CHEST XR CLINICAL INDICATION: COUGH TECHNIQUE: Frontal chest projection is submitted. Examination is limited by patient positioning and t echnique. COMPARISON: No prior exam. FINDINGS: The lungs are well inflated and clear. The heart is upper limit of normal in size. No displaced fract ures identified. IMPRESSION: No acute intrathoracic abnormalities.
[2024-06-30 16:35] LABS: Albumin 4.1 g/dL (3.4-5.0); Albumin/Globulin Ratio 1.2 (1.1-1.8); Anion Gap 12.7 mEq/L (5.0-15.0); Bilirubin Direct 0.2 mg/dL (0-0.2); Bilirubin Indirect, Calculated 0.5 mg/dL (0.2-0.8); Bilirubin Total 0.7 mg/dL (0.2-1.0); Globulin 3.4 g/dL (2.3-3.5); Magnesium 1.9 mg/dL (1.6-2.4); Potassium 3.7 mEq/L (3.5-5.1); Protein, Total 7.5 g/dL (6.4-8.2); Thyroid Stimulating Hormone 1.31 uIU/mL (0.358-3.740); Troponin High Sensitivity 7.2 pg/mL (<58.9)
--- NOTE | 2024-06-30 17:03 | EDPHYS ---
Physician Documentation [facility] Name: Cirilo Mallory Age: 54 yrs Sex: Male : 1970 Arrival Date: 06/30/2024 Time: 15:18 Bed 23 Private MD: SARITA Physician Gallito Bush HPI: 06/30 16:02 This 54 yrs old Male presents to ER via Ambulatory with complaints of Anxiety.sarkis 16:02 The patient presents to the emergency department with anxiety, over unknown sarkis circumstances. Onset: The symptoms/episode began/occurred 1 day(s) ago. Past psychiatric history: Prior diagnosis: anxiety. anxiety. Associated signs and symptoms: Pertinent positives; anxiety, palpitations. Severity of symptoms: At their worst the symptoms were moderate in the emergency department the symptoms are unchanged. The patient has experienced similar episodes in the past, multiple times. Historical: - Allergies: 15:25 No Known Allergies; aa5 - PMHx: 15:25 GERD; Anxiety; aa5 - PSHx: 15:25 hiatal hernia; Left hip; left knee; aa5 - Immunization history:: Adult Immunizations unknown. - Infectious Disease History:: Denies. - Social history:: Smoking status: Reported history of juuling and/or vaping. - Family history:: not pertinent. ROS: 16:02 Constitutional: Negative for fever, chills, and weight loss, Eyes: Negative for injury, sarkis pain, redness, and discharge, ENT: Negative for injury, pain, and discharge, Neck: Negative for injury, pain, and swelling, Cardiovascular: Negative for chest pain, palpitations, and edema, Respiratory: Negative for shortness of breath, cough, wheezing, and pleuritic chest pain, Abdomen/GI: Negative for abdominal pain, nausea, vomiting, diarrhea, and constipation, Back: Negative for injury and pain, : Negative for injury, bleeding, discharge, and swelling, MS/Extremity: Negative for injury and deformity, Skin: Negative for injury, rash, and discoloration, Neuro: Negative for headache, weakness, numbness, tingling, and seizure, Psych: Negative for depression, anxiety, suicide ideation, homicidal ideation, and hallucinations, Allergy/Immunology: Negative for hives, rash, and allergies, Endocrine: Negative for neck swelling, polydipsia, polyuria, polyphagia, and marked weight changes, Hematologic/Lymphatic: Negative for swollen nodes, abnormal bleeding, and unusual bruising, 16:02 Psych: Positive for anxiety, Exam: 16:02 Constitutional: This is a well developed, well nourished patient who is awake, alert, sarkis and in no acute distress. Head/Face: Normocephalic, atraumatic. Eyes: Pupils equal round and reactive to light, extra-ocular motions intact. Lids and lashes normal. Conjunctiva and sclera are non-icteric and not injected. Cornea within normal limits. Periorbital areas with no swelling, redness, or edema. ENT: Nares patent. No nasal discharge, no septal abnormalities noted. Tympanic membranes are normal and external auditory canals are clear. Oropharynx with no redness, swelling, or masses, exudates, or evidence of obstruction, uvula midline. Mucous membranes moist. Neck: Trachea midline, no thyromegaly or masses palpated, and no cervical lymphadenopathy. Supple, full range of motion without nuchal rigidity, or vertebral point tenderness. No Meningismus. Chest/axilla: Normal chest wall appearance and motion. Nontender with no deformity. No lesions are appreciated. Respiratory: Lungs have equal breath sounds bilaterally, clear to auscultation and percussion. No rales, rhonchi or wheezes noted. No increased work of breathing, no retractions or nasal flaring. Abdomen/GI: Soft, non-tender, with normal bowel sounds. No distension or tympany. No guarding or rebound. No evidence of tenderness throughout. Back: No spinal tenderness. No costovertebral tenderness. Full range of motion. Male : Normal genitalia with no discharge or lesions. Skin: Warm, dry with normal turgor. Normal color with no rashes, no lesions, and no evidence of cellulitis. MS/ Extremity: Pulses equal, no cyanosis. Neurovascular intact. Full, normal range of motion., bilateral aka Neuro: Awake and alert, GCS 15, oriented to person, place, time, and situation. Cranial nerves II-XII grossly intact. Motor strength 5/5 in all extremities. Sensory grossly intact. Cerebellar exam normal. Normal gait. Psych: Awake, alert, with orientation to person, place and time. Behavior, mood, and affect are within normal limits. 16:02 Cardiovascular: Rate: normal, Rhythm: regular, Pulses: no pulse deficits are appreciated, Heart sounds: normal, Edema: is not appreciated, JVD: is not appreciated, 16:02 ECG was reviewed by the Attending Physician. Vital Signs: 15:25 BP 174 / 120; Pulse 77; Resp 24 S; Temp 98.1(O); Pulse Ox 100% on R/A; Weight 108.86 kg aa5 (R); Height 6 ft. 2 in. (R); 16:28 BP 156 / 103; Pulse 50; Resp 15 S; Pulse Ox 98% on R/A; kc6 17:14 BP 133 / 88; Pulse 59; Resp 16 S; Pulse Ox 99% on R/A; kc6 15:25 Body Mass Index 30.81 (108.86 kg, 187.96 cm) aa5 MDM: 15:28 Medical Screening Exam initiated sarkis 16:15 Differential diagnosis: drug withdrawal. acute psychotic break, depression, psychosis sarkis secondary to non-compliance. Differential Diagnosis altered mental status, sepsis, flu. Data reviewed: vital signs, nurses notes, lab test result(s). Consideration of Admission/Observation Escalation of care including admission/observation considered. I considered the following discharge prescriptions or medication management in the emergency department Medications were administered in the Emergency Department. See MAR. Independent interpretation of the following test(s) in the Emergency Department EKG: See my EKG interpretation above. Test considered but Not performed: CT: no ct head. Care significantly affected by the following chronic conditions: Obesity, anxiety. 06/30 15:30 Order name: Basic Metabolic Panel; Complete Time: 17:00 [facility] 06/30 15:30 Order name: CBC with Diff; Complete Time: 17:00 [facility] 06/30 15:30 Order name: LFT's; Complete Time: 17:00 06/30 15:30 Order name: Magnesium; Complete Time: 17:00 06/30 15:30 Order name: NT PRO-BNP; Complete Time: 17:00 06/30 15:30 Order name: PT-INR; Complete Time: 16:27 06/30 15:30 Order name: Troponin HS; Complete Time: 17:00 06/30 15:30 Order name: TSH; Complete Time: 17:00 [facility] 06/30 15:30 Order name: Urinalysis w/ reflexes; Complete Time: 17:41 [facility] 06/30 15:30 Order name: UDS; Complete Time: 17:41 06/30 15:30 Order name: Alcohol Level; Complete Time: 16:27 [facility] 06/30 15:30 Order name: XRAY Chest (1 view); Complete Time: 16:33 [facility] 06/30 15:30 Order name: Cardiac monitoring; Complete Time: 16:05 06/30 15:30 Order name: EKG - Nurse/Tech; Complete Time: 16:05 06/30 15:30 Order name: IV Saline Lock; Complete Time: 15:58 [facility] 06/30 15:30 Order name: Labs collected and sent; Complete Time: 15:58 06/30 15:30 Order name: O2 Per Protocol; Complete Time: 16:05 [facility] 06/30 15:30 Order name: O2 Sat Monitoring; Complete Time: 16:05 [facility] EC:02 Rate is 60 beats/min. Rhythm is regular. QRS Cordell is Normal. CA interval is normal. QRS sarkis interval is normal. QT interval is normal. No Q waves. T waves are Normal. No ST changes noted. Clinical impression: Normal ECG and No evidence of ischemia. Interpreted by me. Reviewed by me. Administered Medications: 16:13 Drug: Aspirin PO Chewable Tablet 81 mg PO once Route: PO; jb4 17:14 Follow up: Response: No adverse reaction 6 16:13 Drug: NS 0.9% IV 500 ml 500 ml IV at 1 bolus once; to be given as a bolus over 30 jb4 minutes Volume: 500 ml; Route: IV; Rate: 1 bolus; Site: right antecubital; 17:14 Follow up: Response: No adverse reaction; IV Status: Completed infusion; IV Intake: kc6 500ml 16:13 Drug: Ativan IVP 2 mg IVP once Route: IVP; Site: right antecubital; jb4 17:14 Follow up: Response: No adverse reaction; Anxiety decreased; RASS: Alert and Calm (0) [facility] 16:54 Drug: NS 0.9% IV 1000 ml IV at 125 ml/hr Per protocol Route: IV; Rate: 125 ml/hr; Site: kc right antecubital; 17:26 Follow up: Response: No adverse reaction; IV Status: Completed infusion; IV Intake: kc6 500ml 17:14 Drug: Norvasc PO 10 mg PO once Route: PO; kc6 17:26 Follow up: Response: No adverse reaction; Blood pressure is lowered kc6 17:26 Follow up: Response: No adverse reaction; Blood pressure is lowered kc6 Disposition Summary: 06/30/24 17:02 Discharge Ordered Notes: Location: Home sarkis Problem: new sarkis Symptoms: have improved sarkis Condition: Stable sarkis Diagnosis - Anxiety disorder, unspecified sarkis - Essential (primary) hypertension sarkis Followup: sarkis - With: Private Physician - When: 2 - 3 days - Reason: Recheck today's complaints, Continuance of care, Re-evaluation by your physician Followup: sarkis - With: Augustin Christina MD - When: 2 - 3 days - Reason: Recheck today's complaints, Re-evaluation by your physician Followup: sarkis - With: Mitchell Galvez MD - When: 2 - 3 days - Reason: Recheck today's complaints, Continuance of care, Re-evaluation by your physician Discharge Instructions: - Discharge Summary Sheet sarkis - Panic Attack sarkis - Hypertension, Adult sarkis - Hypertension, Adult, Ccon-ne-Urou sarkis - How to Take Your Blood Pressure, Wazm-um-[id number] sarkis - Panic Attack, [id number] sarkis - Aspirin and Your Heart sarkis - Managing Your Hypertension sarkis - Supporting Someone With Anxiety sarkis - Managing Anxiety, Adult sarkis Forms: - Medication Reconciliation Form sarkis - Antibiotic Education sarkis - Prescription Opioid Use sarkis - Patient Portal Instructions [facility] - Leadership Thank You Letter [facility] Prescriptions: - Norvasc 5 mg Oral Tablet - take 1 tablet ORAL route once daily; 20 tablet; Refills: 0, Product Selection [facility] Permitted - Xanax 0.5 mg Oral Tablet - take 1 tablet ORAL route every 8 hours As needed; 10 tablet; Refills: 0, [facility] Product Selection Permitted Signatures: Dispatcher [employer] Gallito Pena MD MD cha Calderon, Audri RN RN aa5 Lalo Saenz RN RN jb4 Karime Schuler RN RN kc6
--- NOTE | 2024-06-30 17:03 | ER ---
Nurse's Notes [facility] Name: Cirilo Mallory Age: 54 yrs Sex: Male : 1970 Arrival Date: 06/30/2024 Time: 15:18 Bed 23 Private MD: Diagnosis: Anxiety disorder, unspecified;Essential (primary) hypertension Presentation: 06/30 15:25 Chief complaint: Patient states: anxiety attack x 7 hrs, pt states "I just saw my aa5 doctor this morning and he gave me propranolol and hydroxyzine but it's not helping". Coronavirus screen: At this time, the client does not indicate any symptoms associated with coronavirus-19. Ebola Screen: Patient denies travel to an Ebola-affected area in the 21 days before illness onset. Initial Sepsis Screen: Does the patient meet any 2 criteria? RR > 20 per min. Does the patient have a suspected source of infection? No. Patient's initial sepsis screen is negative. Risk Assessment: Do you want to hurt yourself or someone else? Patient reports no desire to harm self or others. Onset of symptoms was June 30, 2024. 15:25 Acuity: SYLVIA 3 aa5 15:25 Method Of Arrival: Ambulatory aa5 Historical: - Allergies: 15:25 No Known Allergies; aa5 - PMHx: 15:25 GERD; Anxiety; aa5 - PSHx: 15:25 hiatal hernia; Left hip; left knee; aa5 - Immunization history:: Adult Immunizations unknown. - Infectious Disease History:: Denies. - Social history:: Smoking status: Reported history of juuling and/or vaping. - Family history:: not pertinent. Screenin:28 [facility] ED Fall Risk Assessment (Adult) History of falling in the last 3 months, kc6 including since admission No falls in past 3 months (0 pts) Confusion or Disorientation No (0 pts) Intoxicated or Sedated No (0 pts) Impaired Gait No (0 pts) Mobility Assist Device Used No (0 pt) Altered Elimination No (0 pt) Score/Fall Risk Level 0 - 2 = Low Risk Oriented to surroundings, Maintained a safe environment, Educated pt \\T\\ family on fall prevention, incl call for assistance when getting out of bed. Abuse screen: Denies threats or abuse. Denies injuries from another. Nutritional screening: No deficits noted. Tuberculosis screening: No symptoms or risk factors identified. Assessment: 17:15 General: Appears in no apparent distress. comfortable, well groomed, well developed, kc6 Behavior is calm, cooperative, appropriate for age. Pain: Denies pain. Neuro: Level of Consciousness is awake, alert, obeys commands, Oriented to person, place, time, situation, Appropriate for age. Cardiovascular: Capillary refill < 3 seconds. Respiratory: Airway is patent Trachea midline Respiratory effort is even, unlabored, Respiratory pattern is regular, symmetrical. GI: No signs and/or symptoms were reported involving the gastrointestinal system. : No signs and/or symptoms were reported regarding the genitourinary system. EENT: No signs and/or symptoms were reported regarding the EENT system. Derm: No signs and/or symptoms reported regarding the dermatologic system. Skin is intact, is healthy with good turgor, Skin is pink, warm \\T\\ dry. Musculoskeletal: No signs and/or symptoms reported regarding the musculoskeletal system. Circulation, motion, and sensation intact. Range of motion: intact in all extremities. Vital Signs: 15:25 BP 174 / 120; Pulse 77; Resp 24 S; Temp 98.1(O); Pulse Ox 100% on R/A; Weight 108.86 kg aa5 (R); Height 6 ft. 2 in. (R); 16:28 BP 156 / 103; Pulse 50; Resp 15 S; Pulse Ox 98% on R/A; kc6 17:14 BP 133 / 88; Pulse 59; Resp 16 S; Pulse Ox 99% on R/A; kc6 15:25 Body Mass Index 30.81 (108.86 kg, 187.96 cm) aa5 ED Course: 15:21 Patient arrived in ED. cj3 15:25 Arm band placed on. aa5 15:26 Triage completed. aa5 15:28 Gallito Bush MD is Attending Physician. sarkis 15:57 Initial lab(s) drawn, by me, sent to lab. Inserted saline lock: 20 gauge in right iw antecubital area, using aseptic technique. Blood collected. Flushed with 10 mL NS. 16:05 Lalo Saenz, RN is Primary Nurse. jb4 16:05 Troponin HS Sent. jb4 16:05 PT-INR Sent. jb4 16:05 NT PRO-BNP Sent. jb4 16:05 Magnesium Sent. jb4 16:05 LFT's Sent. jb4 16:05 CBC with Diff Sent. jb4 16:05 Basic Metabolic Panel Sent. jb4 16:05 TSH Sent. jb4 16:05 Alcohol Level Sent. jb4 16:26 XRAY Chest (1 view) In Process Unspecified. EDMS 16:28 Patient has correct armband on for positive identification. Bed in low position. Call kc6 light in reach. Side rails up X 1. Adult w/ patient. Report received from ARMEN Mahoney. msws on. Pulse ox on. NIBP on. Door closed. Noise minimized. Lights dimmed. Warm blanket given. Pillow given. Verbal reassurance given. 16:28 Patient maintains SpO2 saturation greater than 95% on room air. kc 17:02 Augustin Christina MD is Referral Physician. sarkis 17:02 Mitchell Galvez MD is Referral Physician. [facility] 17:41 No provider procedures requiring assistance completed. IV discontinued, intact, kc6 bleeding controlled, No redness/swelling at site. Pressure dressing applied. Administered Medications: 16:13 Drug: Aspirin PO Chewable Tablet 81 mg PO once Route: PO; jb4 17:14 Follow up: Response: No adverse reaction kc6 16:13 Drug: NS 0.9% IV 500 ml 500 ml IV at 1 bolus once; to be given as a bolus over 30 jb4 minutes Volume: 500 ml; Route: IV; Rate: 1 bolus; Site: right antecubital; 17:14 Follow up: Response: No adverse reaction; IV Status: Completed infusion; IV Intake: kc6 500ml 16:13 Drug: Ativan IVP 2 mg IVP once Route: IVP; Site: right antecubital; jb4 17:14 Follow up: Response: No adverse reaction; Anxiety decreased; RASS: Alert and Calm (0) kc6 16:54 Drug: NS 0.9% IV 1000 ml IV at 125 ml/hr Per protocol Route: IV; Rate: 125 ml/hr; Site: kc6 right antecubital; 17:26 Follow up: Response: No adverse reaction; IV Status: Completed infusion; IV Intake: kc6 500ml 17:14 Drug: Norvasc PO 10 mg PO once Route: PO; kc6 17:26 Follow up: Response: No adverse reaction; Blood pressure is lowered kc6 17:26 Follow up: Response: No adverse reaction; Blood pressure is lowered kc6 Medication: 17:41 VIS not applicable for this client. kc6 Intake: 17:14 IV: 500ml; Total: 500ml. kc6 17:26 IV: 500ml; Total: 1000ml. kc6 Outcome: 17:02 Discharge ordered by . sarkis 17:41 Discharged to home ambulatory, with family, with significant other, kc6 17:41 Condition: improved 17:41 Discharge instructions given to patient, significant other, Instructed on discharge instructions, follow up and referral plans. no drinking with medication, no driving heavy equipment, medication usage, Demonstrated understanding of instructions, follow-up care, medications, Prescriptions given X 2, 17:42 Patient left the ED. kc6 Signatures: Dispatcher [employer] EDMS Gallito Bush MD MD cha Williams, Irene, RN Bel Daniel RN RN aa5 Lalo Saenz RN RN rex4 Karime Schuler RN RN kc6 Olivia Jung 3
[2024-06-30] MEDS ORDERED: AMLODIPINE 10 MG TAB ONE (17:08)
[2024-06-30 17:12] LABS: Specific Gravity 1.005 (1.005-1.030); Urine Bilirubin NEGATIVE (Negative); Urine Blood Negative (Negative); Urine Clarity Clear (Clear); Urine Color Colorless (Yellow); Urine Glucose NEGATIVE (Negative); Urine Ketones NEGATIVE (Negative); Urine Microscopic Reflex YN NO UMIC; Urine Nitrite NEGATIVE (Negative); Urine Protein NEGATIVE (Negative); Urine Urobilinogen Normal (Normal); Urine pH 7.5 (5.0-7.0)
[2024-06-30 17:24] LABS: Barbiturates NEGATIVE (NEGATIVE); Benzodiazepines NEGATIVE (NEGATIVE); Cocaine NEGATIVE (NEGATIVE); METHAMPHETAM NEGATIVE (NEGATIVE); Methadone NEGATIVE (NEGATIVE); Opiates NEGATIVE (NEGATIVE); Phencyclidine NEGATIVE (NEGATIVE); THC Cannibis NEGATIVE (NEGATIVE)
[2024-06-30 18:04] VITALS: TEMP 98.1
[2024-06-30 18:06] VITALS: BP 133/88; O2SAT 99
== END 2024-06-30 17:42 | disposition home or self-care (01) ==
LOC: ER 15:18
DX: F41.9 Anxiety disorder, unspecified (principal); I10 Essential (primary) hypertension
CPT/HCPCS: 96361; 93005; 85025; 80048; 36415; 83735; 85610; 80076; 84443; 81003; 84484; 83880; 80307; 71045; 96374; 99285; 82077; J7030